=== PATIENT | female | born 1975 | race Caucasian/White ===

== ENCOUNTER 2016-08-21 17:43 | Emergency (ER) | payer BC ==
[~2016-08-21] VITALS: Ht 162.6 cm; Wt 65.8 kg
[~2016-08-21 17:43] MED LIST: /AMIT25TA PO; /AUGM875TA OR; /IPRA3SP; /MOXI40TA PO; ACET65TA OR; BACT800T5 PO; DEPA250T2 PO; FIORICET OR; FIORTAB PO; GABA-282 PO; HYDR-3713 PO; IBUP600T26 PO; IBUP800T OR; KETO10TAB PO; LEVA31IN INH; MAXA5TAB10 PO; MAXALT PO; MEDR4PAK PO; NORT25CA2 OR; NORT25CA2 PO; NYST1000 SS; OMEP20CA3 PO; PRIL20CA9 PO; REGL10TA6 PO; TYLE325T5 PO; TYLETAB14 PO; ZOFR8TAB PO; [UNRECOGNIZED DRUG - OTHER] PO
[2016-08-21] MEDS ORDERED: NORCO, ANEXSIA 5/325MG TABLET (HYDROcodone/ACETAMINOPHEN) PO ONE (18:15)
[2016-08-21] MEDS ORDERED: ADACEL/BOOSTRIX VACCINE (DIPHTH/PERTUSS/ACELL/TETANUS)0.5ML SYR (90715) IM ONE (18:15)
[2016-08-21] MEDS ORDERED: NORCOTAB PO (18:45)
[2016-08-21 18:52] VITALS: BP 146/88
--- NOTE | 2016-08-21 18:53 | REP ---
Clinical: Trauma. Technique: AP, lateral, bilateral oblique and sunrise views right knee . Findings: The osseous structures and joint spaces are intact and normal. There is no evidence for acute fracture or dislocation. No joint effusion is appreciated. Anterior soft tissue swelling noted. No subcutaneous emphysema or radiodense foreign body. Impression: Anterior swelling. No acute fracture or dislocation. Signed by Neto Berg MD 08/21/2016 06:44 P
[2016-08-22] MEDS ORDERED: NAPR500T2 PO (17:25)
== END 2016-08-21 18:58 | disposition home or self-care (01) ==
LOC: M ED 18:38
DX: S50.812A Abrasion of left forearm, initial encounter (principal); S80.01XA Contusion of right knee, initial encounter; W10.1XXA Fall (on)(from) sidewalk curb, initial encounter; Y92.410 Unspecified street and highway as the place of occurrence of the external cause; Y93.01 Activity, walking, marching and hiking; Y99.8 Other external cause status; G43.909 Migraine, unspecified, not intractable, without status migrainosus; Z79.899 Other long term (current) drug therapy; Z88.8 Allergy status to other drugs, medicaments and biological substances; Z88.1 Allergy status to other antibiotic agents

== ENCOUNTER 2016-08-22 16:30 | Emergency (ER) | payer BC ==
[~2016-08-22] VITALS: Ht 162.6 cm; Wt 65.8 kg
[2016-08-22 16:30] VITALS: BP 116/70
[~2016-08-22 16:30] MED LIST changes: +NORCOTAB PO
[2016-08-22] MEDS ORDERED: NAPR500T2 PO (17:25)
== END 2016-08-22 17:35 | disposition home or self-care (01) ==
LOC: M ED 17:10
DX: M23.91 Unspecified internal derangement of right knee (principal); M25.461 Effusion, right knee; W19.XXXA Unspecified fall, initial encounter; Y92.410 Unspecified street and highway as the place of occurrence of the external cause; Y93.89 Activity, other specified; Y99.9 Unspecified external cause status; Z79.899 Other long term (current) drug therapy; Z88.1 Allergy status to other antibiotic agents; Z88.8 Allergy status to other drugs, medicaments and biological substances

== ENCOUNTER → 2016-08-26 | Outpatient (REF) | payer BC ==
[~2016-08-26] MED LIST changes: +NAPR500T2 PO
[2016-08-26 17:54] LABS: SYNOVIAL FLUID COLOR RED (YELLOW)
[2016-08-26 17:55] LABS: CRYSTALS, BODY FLUID NONE SEEN (NONE SEEN)
[2016-08-26 18:05] LABS: RBC ADVIA BF 0.07; RBC CALC. BF 70000 (< 10mm3 cells/uL); WBC ADVIA BF 12.8; WBC CALC. BF 12800 cells/uL (0-20)
[2016-08-26 18:16] LABS: BF DIFF IF INDICATED? YES (NO)
[2016-08-26 18:51] LABS: URIC ACID, BODY FLUID 3.3 MG/DL (NOT ESTABLISHED)
[2016-08-26 20:19] LABS: CC BF DIFF EXAM CYTOCENTRIFUGE
[2016-08-26 20:22] LABS: HCT SOURCE RT KNEE
== END ==
LOC: M LAB REF 16:51
PROVIDERS: ATTEND Orthopaedic Surgery
DX: M71.50 Other bursitis, not elsewhere classified, unspecified site (principal)

== ENCOUNTER → 2016-09-15 | Outpatient (REF) | payer BC | LOC: M LAB REF 08:36 | PROVIDERS: ATTEND Physician Assistant | DX: R10.32 Left lower quadrant pain (principal) ==

== ENCOUNTER 2016-09-24 08:58 | Outpatient (RCR) | payer BC ==
[~2016-09-24 08:58] MED LIST changes: +IBUP-1022 PO; -NAPR500T2 PO; +NAPR500T3 PO
== END 2016-09-25 | disposition home or self-care (01) ==
LOC: M PT 08:58
PROVIDERS: ATTEND Orthopaedic Surgery
DX: Z51.89 Encounter for other specified aftercare (principal); M70.51 Other bursitis of knee, right knee

== ENCOUNTER 2016-09-30 00:17 | Emergency (ER) | payer BC ==
[2016-09-30] MEDS ORDERED: NORCO, ANEXSIA 5/325MG TABLET (HYDROcodone/ACETAMINOPHEN) As Ordered ONE (02:50)
[2016-09-30] MEDS: NORCO, ANEXSIA 5/325MG TABLET (HYDROcodone/ACETAMINOPHEN) PO ONE (02:54)
[2016-09-30] MEDS ORDERED: NORCOTAB PO (03:58)
[2016-09-30] MEDS: MORPHINE 10 MG/ML 1ML VIAL IM ONE (04:05)
[2016-09-30 04:42] VITALS: BP 103/88
--- NOTE | 2016-09-30 07:33 | REP ---
Clinical: Trauma. Technique: AP, lateral, bilateral oblique views of the left ankle. Findings: A spiral nondisplaced closed fracture of the distal fibular metadiaphysis is appreciated with overlying soft tissue swelling. No subcutaneous emphysema or radiodense foreign body. Ankle mortise appears relatively stable. Impression: Spiral closed nondisplaced fracture of the distal fibula with overlying swelling. Signed by Neto Berg MD 09/30/2016 07:24 A
--- NOTE | 2016-09-30 07:36 | REP ---
Clinical: Trauma. Technique: AP, lateral, bilateral oblique views left foot . Findings: The osseous structures and joint spaces are intact and normal. There is no evidence for acute fracture or dislocation. Surrounding soft tissues are unremarkable. No subcutaneous emphysema or radiodense foreign body. Nondisplaced fracture of the distal fibula with swelling noted. Impression: Nondisplaced distal fibular fracture. No acute fracture or dislocation involving the foot. Signed by Neto Berg MD 09/30/2016 07:28 A
[2016-10-01] MEDS ORDERED: PERC5TAB12 PO (00:46)
== END 2016-09-30 04:46 | disposition home or self-care (01) ==
LOC: M ED 01:07
DX: S82.442A Displaced spiral fracture of shaft of left fibula, initial encounter for closed fracture (principal); W19.XXXA Unspecified fall, initial encounter; Y92.019 Unspecified place in single-family (private) house as the place of occurrence of the external cause; Y93.9 Activity, unspecified; Y99.8 Other external cause status

== ENCOUNTER 2016-09-30 21:45 | Emergency (ER) | payer BC ==
[~2016-09-30] VITALS: Ht 162.6 cm; Wt 63.6 kg
[2016-09-30] MEDS ORDERED: HYDROmorphone HCL 1 MG/ML SYRINGE (J1170) IM ONE (23:45)
[2016-10-01] MEDS ORDERED: PERC5TAB12 PO (00:46)
[2016-10-01 00:53] VITALS: BP 117/62
[2016-10-01] MEDS ORDERED: OXYCODONE/APAP 5MG/325MG(BULK FOR ED) 1 TABLET PO ONE (01:00)
== END 2016-10-01 00:59 | disposition home or self-care (01) ==
LOC: M ED 21:45
DX: S82.402D Unspecified fracture of shaft of left fibula, subsequent encounter for closed fracture with routine healing (principal); X58.XXXD Exposure to other specified factors, subsequent encounter; Y92.89 Other specified places as the place of occurrence of the external cause; F17.210 Nicotine dependence, cigarettes, uncomplicated; Z91.81 History of falling; Z79.899 Other long term (current) drug therapy; Z88.8 Allergy status to other drugs, medicaments and biological substances; Z91.018 Allergy to other foods; Z88.1 Allergy status to other antibiotic agents
CPT/HCPCS: 96372; 99282; J1170

== ENCOUNTER 2016-12-10 18:47 | Emergency (ER) | payer BC ==
[~2016-12-10] VITALS: Ht 160 cm; Wt 65.0 kg
[~2016-12-10 18:47] MED LIST changes: +PERC5TAB12 PO
[2016-12-10] MEDS ORDERED: ACET1TAB17 PO (19:06)
[2016-12-10] MEDS ORDERED: diphenhydrAMINE INJ 50MG/ML VIAL (J1200) IV STA (21:22)
[2016-12-10] MEDS ORDERED: NS 1,000 ML IV ONE (21:30)
[2016-12-10] MEDS ORDERED: METOCLOPRAMIDE INJ 10MG/2ML VIAL (J2765) IV ONE (21:30)
[2016-12-10] MEDS ORDERED: KETOROLAC 30 MG/ML VIAL (J1885) IV ONE (21:30)
[2016-12-10 21:50] LABS: BASO % 0.5 % (0.0-1.0); EOS # 0.5 K/mm3 (0.0-0.50); EOS % 6.4 % (0.0-3.0); LARGE UNSTAINED CELL # 0.1 K/mm3 (0.0-0.4); LARGE UNSTAINED CELL % 1.5 % (0.0-4.0); LYMPH # 2.2 K/mm3 (1.5-4.5); LYMPH % 28.5 % (24.0-44.0); MEAN CORPUSCULAR HEMOGLOBIN 29.5 pg (27.0-33.0); MEAN CORPUSCULAR HGB CONC 33.9 g/dl (32.0-36.5); MEAN CORPUSCULAR VOLUME 87.1 fl (80.0-96.0); MONO # 0.4 K/mm3 (0.0-0.8); MONO % 4.6 % (0.0-5.0); NEUTROPHILS # 4.5 K/mm3 (1.8-7.7); NEUTROPHILS % 58.4 % (36.0-66.0); PLATELET COUNT, AUTOMATED 330 k/mm3 (150-450); RED CELL DISTRIBUTION WIDTH 13.6 % (11.5-14.5); WHITE BLOOD COUNT 7.6 K/mm3 (4.0-10.0)
[2016-12-10 22:07] LABS: ERYTHROCYTE SEDIMENTATION RATE 17 mm/hr (0-20)
[2016-12-10 22:12] LABS: ANION GAP 5 MEQ/L (8-16); BLOOD UREA NITROGEN 8 MG/DL (7-18); CALCIUM LEVEL 8.7 MG/DL (8.5-10.1); CARBON DIOXIDE LEVEL 29 MEQ/L (21-32); CHLORIDE LEVEL 107 MEQ/L (98-107); CREATININE FOR GFR 0.63 MG/DL (0.55-1.02); GLOMERULAR FILTRATION RATE > 60.0 (>60); GLUCOSE, FASTING 89 MG/DL (70-105); POTASSIUM SERUM 4.1 MEQ/L (3.5-5.1); SODIUM LEVEL 141 MEQ/L (136-145)
[2016-12-10] MEDS ORDERED: MORPHINE 4 MG/ML 1ML SYRINGE IV ONE (22:30)
[2016-12-10] MEDS ORDERED: methylPREDNISolone INJ 125 MG/2 ML VIAL (J2930) IV ONE (22:30)
[2016-12-10 23:25] VITALS: BP 112/60
== END 2016-12-10 23:26 | disposition home or self-care (01) ==
LOC: M ED 18:47
DX: G43.909 Migraine, unspecified, not intractable, without status migrainosus (principal); Z87.442 Personal history of urinary calculi; Z87.42 Personal history of other diseases of the female genital tract; Z98.890 Other specified postprocedural states; Z79.899 Other long term (current) drug therapy; Z88.8 Allergy status to other drugs, medicaments and biological substances; Z88.1 Allergy status to other antibiotic agents; Z91.048 Other nonmedicinal substance allergy status
CPT/HCPCS: 80048; 85025; 85652; 96374; 96375; 99283; J1200; J1885; J2765; J2930

== ENCOUNTER 2017-01-25 10:00 | Outpatient (RCR) | payer BC ==
[~2017-01-25 10:00] MED LIST changes: +ACET1TAB17 PO
== END 2017-01-26 ==
LOC: M PT 10:00
PROVIDERS: ATTEND Physician Assistant
DX: Z51.89 Encounter for other specified aftercare (principal); M84.472D Pathological fracture, left ankle, subsequent encounter for fracture with routine healing

== ENCOUNTER 2017-02-07 20:37 | Emergency (ER) | payer BC ==
[~2017-02-07] VITALS: Ht 160 cm; Wt 63.6 kg
[2017-02-07] MEDS ORDERED: NORCO, ANEXSIA 5/325MG TABLET (HYDROcodone/ACETAMINOPHEN) PO ONE (21:00)
--- NOTE | 2017-02-07 21:50 | REPUSA ---
Clinical history: Pain. Findings: Real-time transabdominal and transvaginal ultrasound images of the pelvis were obtained. Th e patient is status post hysterectomy. The right ovary measures 2.4 x 1.5 x 2.4 cm. The left ovary me asures 2.2 x 1.7 x 1.6 cm. No adnexal masses are seen. Color Doppler flow is seen within both ovaries . There is no evidence of free fluid. The urinary bladder measures 3.6 x 2.0 x 4.6 cm and is unremark able. Impression: Unremarkable ultrasound examination of the pelvis.
[2017-02-07 22:50] VITALS: BP 171/78
== END 2017-02-07 22:56 | disposition home or self-care (01) ==
LOC: M ED 20:37
DX: N93.9 Abnormal uterine and vaginal bleeding, unspecified (principal); Z87.42 Personal history of other diseases of the female genital tract; Z79.899 Other long term (current) drug therapy; Z88.8 Allergy status to other drugs, medicaments and biological substances; Z88.1 Allergy status to other antibiotic agents

== ENCOUNTER 2017-02-23 12:00 | Outpatient (RCR) | payer BC | END 2017-02-25 | LOC: M PT 12:00 | PROVIDERS: ATTEND Physician Assistant | DX: S82.65XD Nondisplaced fracture of lateral malleolus of left fibula, subsequent encounter for closed fracture with routine healing (principal); X58.XXXD Exposure to other specified factors, subsequent encounter; Y92.9 Unspecified place or not applicable ==

== ENCOUNTER 2017-03-02 11:59 | Outpatient (RCR) | payer BC | END 2017-03-28 | LOC: M PT 11:59 | DX: Z51.89 Encounter for other specified aftercare (principal); S82.56 Nondisplaced fracture of medial malleolus of unspecified tibia ==

== ENCOUNTER 2017-05-05 16:25 | Emergency (ER) | payer BC ==
[2017-05-05 17:01] LABS: KETONE, URINE AUTO RFX NEGATIVE (NEGATIVE); LEUKOCYTE ESTERASE UR AUTO RFX NEGATIVE (NEGATIVE); MUCUS, URINE RFX SMALL (NEGATIVE); NITRITE, URINE AUTO RFX NEGATIVE (NEGATIVE); RBC, URINE AUTO RFX 1 /HPF (0-3); SPECIFIC GRAVITY UR AUTO RFX 1.006 (1.002-1.035); SQUAM EPITHELIAL CELL UR AURFX 0 /HPF (0-6); WBC, URINE AUTO RFX 0 /HPF (0-3)
[2017-05-05] MEDS: NS 1,000 ML IV (18:47)
[2017-05-05] MEDS: MORPHINE 2 MG/ML 1ML SYRINGE (J2270) IV (18:47)
[2017-05-05 18:50] LABS: BASO # 0.1 10^3/uL (0.0-0.2); BASO % 0.7 % (0.0-1.0); EOS # 0.6 10^3/uL (0.0-0.50); HEMATOCRIT 38.2 % (36.0-47.0); HEMOGLOBIN 12.3 g/dl (12.0-16.0); IMMATURE GRANULOCYTE % 0.4 % (0-3.0); LYMPH # 2.8 10^3/uL (1.5-4.5); LYMPH % 26.2 % (24.0-44.0); MEAN CORPUSCULAR HEMOGLOBIN 27.8 pg (27.0-33.0); MEAN CORPUSCULAR HGB CONC 32.2 g/dl (32.0-36.5); MEAN CORPUSCULAR VOLUME 86.2 fl (80.0-96.0); MONO # 0.7 10^3/uL (0.0-0.8); MONO % 6.3 % (0.0-5.0); NEUTROPHILS # 6.5 10^3/uL (1.8-7.7); NEUTROPHILS % 60.4 % (36.0-66.0); PLATELET COUNT, AUTOMATED 338 10^3/uL (150-450); RED BLOOD COUNT 4.43 10^6/uL (4.00-5.40); RED CELL DISTRIBUTION WIDTH 13.3 % (11.5-14.5); WHITE BLOOD COUNT 10.8 10^3/uL (4.0-10.0)
[2017-05-05 19:15] LABS: ALBUMIN 3.6 GM/DL (3.2-5.2); ALBUMIN/GLOBULIN RATIO 1.13 (1.00-1.93); ALKALINE PHOSPHATASE 87 U/L (45-117); ALT/SGPT 26 U/L (12-78); ANION GAP 7 MEQ/L (8-16); AST/SGOT 14 U/L (7-37); BILIRUBIN,DIRECT < 0.1 MG/DL (0.0-0.2); BILIRUBIN,TOTAL 0.2 MG/DL (0.2-1.0); BLOOD UREA NITROGEN 8 MG/DL (7-18); CALCIUM LEVEL 8.7 MG/DL (8.5-10.1); CARBON DIOXIDE LEVEL 27 MEQ/L (21-32); CHLORIDE LEVEL 109 MEQ/L (98-107); CREATININE FOR GFR 0.55 MG/DL (0.55-1.30); GLOMERULAR FILTRATION RATE > 60.0 (>58); GLUCOSE, FASTING 97 MG/DL (70-100); INFLUENZA A AMPLIFICATION NEGATIVE (NEGATIVE); INFLUENZA B AMPLIFICATION NEGATIVE (NEGATIVE); LIPASE 151 U/L (73-393); POTASSIUM SERUM 4.6 MEQ/L (3.5-5.1); SODIUM LEVEL 143 MEQ/L (136-145); TOTAL PROTEIN 6.8 GM/DL (6.4-8.2)
== END 2017-05-05 20:26 | disposition home or self-care (01) ==
LOC: M ED 16:25
DX: N83.201 Unspecified ovarian cyst, right side (principal); K44.9 Diaphragmatic hernia without obstruction or gangrene; K21.9 Gastro-esophageal reflux disease without esophagitis; Z79.899 Other long term (current) drug therapy; Z88.8 Allergy status to other drugs, medicaments and biological substances; Z91.048 Other nonmedicinal substance allergy status; Z88.1 Allergy status to other antibiotic agents; Z87.442 Personal history of urinary calculi; Z87.448 Personal history of other diseases of urinary system; Z86.69 Personal history of other diseases of the nervous system and sense organs; Z87.42 Personal history of other diseases of the female genital tract; Z98.890 Other specified postprocedural states
CPT/HCPCS: J2770

== ENCOUNTER → 2017-06-03 | Outpatient (REF) | payer BC | LOC: M LAB REF 15:43 | DX: N39.0 Urinary tract infection, site not specified (principal) | CPT/HCPCS: 87086 ==

== ENCOUNTER 2017-09-21 22:21 | Inpatient (IN) | payer BC ==
[2017-09-21] MEDS: NS 1,000 ML IV (23:00)
[2017-09-21] MEDS: METOCLOPRAMIDE INJ 10MG/2ML VIAL (J2765) IV (23:00)
[2017-09-21 23:22] LABS: BASO # 0.1 10^3/uL (0.0-0.2); BASO % 0.4 % (0.0-1.0); EOS # 0.3 10^3/uL (0.0-0.50); EOS % 2.5 % (0.0-3.0); HEMATOCRIT 36.5 % (36.0-47.0); IMMATURE GRANULOCYTE % 0.3 % (0-3.0); LYMPH # 2.1 10^3/uL (1.5-4.5); LYMPH % 17.6 % (24.0-44.0); MEAN CORPUSCULAR HEMOGLOBIN 27.9 pg (27.0-33.0); MEAN CORPUSCULAR HGB CONC 32.9 g/dl (32.0-36.5); MEAN CORPUSCULAR VOLUME 84.9 fl (80.0-96.0); MONO # 0.9 10^3/uL (0.0-0.8); MONO % 7.2 % (0.0-5.0); NEUTROPHILS # 8.7 10^3/uL (1.8-7.7); PLATELET COUNT, AUTOMATED 315 10^3/uL (150-450); RED CELL DISTRIBUTION WIDTH 13.5 % (11.5-14.5); WHITE BLOOD COUNT 12.1 10^3/uL (4.0-10.0)
[2017-09-21 23:46] LABS: CONTROL LINE HCG INT CTR LINE PRESENT; HCG, SERUM QUALITATIVE NEGATIVE (NEGATIVE)
[2017-09-21 23:49] LABS: ALBUMIN 3.3 GM/DL (3.2-5.2); ALBUMIN/GLOBULIN RATIO 1.06 (1.00-1.93); ALKALINE PHOSPHATASE 63 U/L (45-117); ALT/SGPT 17 U/L (12-78); ANION GAP 5 MEQ/L (8-16); AST/SGOT 10 U/L (7-37); BILIRUBIN,DIRECT < 0.1 MG/DL (0.0-0.2); BILIRUBIN,TOTAL 0.2 MG/DL (0.2-1.0); BLOOD UREA NITROGEN 13 MG/DL (7-18); CALCIUM LEVEL 8.2 MG/DL (8.5-10.1); CARBON DIOXIDE LEVEL 27 MEQ/L (21-32); CHLORIDE LEVEL 112 MEQ/L (98-107); CREATININE FOR GFR 0.69 MG/DL (0.55-1.30); GLOMERULAR FILTRATION RATE > 60.0 (>58); GLUCOSE, FASTING 100 MG/DL (70-100); MAGNESIUM LEVEL 1.9 MG/DL (1.8-2.4); PHOSPHORUS LEVEL 2.7 MG/DL (2.5-4.9); POTASSIUM SERUM 4.1 MEQ/L (3.5-5.1); SODIUM LEVEL 144 MEQ/L (136-145); TOTAL PROTEIN 6.4 GM/DL (6.4-8.2)
[2017-09-21 23:50] LABS: KETONE, URINE AUTO RFX NEGATIVE (NEGATIVE); LEUKOCYTE ESTERASE UR AUTO RFX NEGATIVE (NEGATIVE); MUCUS, URINE RFX SMALL (NEGATIVE); NITRITE, URINE AUTO RFX NEGATIVE (NEGATIVE); RBC, URINE AUTO RFX 1 /HPF (0-3); SPECIFIC GRAVITY UR AUTO RFX 1.025 (1.002-1.035); SQUAM EPITHELIAL CELL UR AURFX 1 /HPF (0-6); WBC, URINE AUTO RFX 0 /HPF (0-3)
[2017-09-22] MEDS: KETOROLAC 30 MG/ML VIAL (J1885) IV ×4 (00:18→22:08)
[2017-09-22 01:01] LABS: AMPHETAMINES LEVEL URINE NEGATIVE (NEGATIVE); BARBITURATES URINE NEGATIVE (NEGATIVE); BENZODIAZEPINES URINE NEGATIVE (NEGATIVE); CANNABINOIDS URINE NEGATIVE (NEGATIVE); COCAINE METABOLITE URINE NEGATIVE (NEGATIVE); METHADONE URINE NEGATIVE (NEGATIVE); OPIATES URINE NEGATIVE (NEGATIVE); PHENCYCLIDINE URINE NEGATIVE (NEGATIVE)
[2017-09-22] MEDS: NS 1,000 ML IV ×3 (02:52→22:11)
[2017-09-22] MEDS ORDERED: PERCOCET 5MG/325MG TAB PO (03:00)
[2017-09-22] MEDS ORDERED: ACETAMINOPHEN TAB 650MG DOSE (2X325MG) PO (03:00)
[2017-09-22] MEDS: SUMAtriptan SUCCINATE 6 MG/0.5 ML VIAL SC (03:54)
[2017-09-22] MEDS: ACETAMINOPHEN TAB 650MG DOSE (2X325MG) PO (03:55)
[2017-09-22] MEDS: MORPHINE 4 MG/ML 1ML VIAL/SYRINGE (J2270) IV (04:15)
[2017-09-22] MEDS: DIVALPROEX 250 MG TAB PO ×3 (04:59→22:07)
[2017-09-22] MEDS: ENOXAPARIN 40 MG/0.4 ML SYRINGE (J1650) SC (08:06)
[2017-09-22] MEDS ORDERED: FIORICET TAB PO (09:00)
[2017-09-22 09:26] LABS: BASO % 0.4 % (0.0-1.0); EOS # 0.2 10^3/uL (0.0-0.50); EOS % 1.5 % (0.0-3.0); HEMATOCRIT 34.6 % (36.0-47.0); HEMOGLOBIN 11.6 g/dl (12.0-15.5); IMMATURE GRANULOCYTE % 0.3 % (0-3.0); LYMPH % 9.7 % (24.0-44.0); MEAN CORPUSCULAR HGB CONC 33.5 g/dl (32.0-36.5); MEAN CORPUSCULAR VOLUME 83.4 fl (80.0-96.0); MONO # 0.8 10^3/uL (0.0-0.8); MONO % 7.7 % (0.0-5.0); NEUTROPHILS # 8.5 10^3/uL (1.8-7.7); NEUTROPHILS % 80.4 % (36.0-66.0); PLATELET COUNT, AUTOMATED 254 10^3/uL (150-450); RED BLOOD COUNT 4.15 10^6/uL (4.00-5.40); RED CELL DISTRIBUTION WIDTH 13.3 % (11.5-14.5); WHITE BLOOD COUNT 10.6 10^3/uL (4.0-10.0)
[2017-09-22 09:46] LABS: ANION GAP 8 MEQ/L (8-16); BLOOD UREA NITROGEN 9 MG/DL (7-18); C REACTIVE PROTEIN QUANTITATIV 0.73 MG/DL (0.00-0.30); CALCIUM LEVEL 7.6 MG/DL (8.5-10.1); CARBON DIOXIDE LEVEL 22 MEQ/L (21-32); CHLORIDE LEVEL 113 MEQ/L (98-107); CREATININE FOR GFR 0.45 MG/DL (0.55-1.30); GLOMERULAR FILTRATION RATE > 60.0 (>58); GLUCOSE, FASTING 93 MG/DL (70-100); POTASSIUM SERUM 4.1 MEQ/L (3.5-5.1); SODIUM LEVEL 143 MEQ/L (136-145)
[2017-09-22 09:50] LABS: ERYTHROCYTE SEDIMENTATION RATE 12 mm/hr (0-20)
[2017-09-22] MEDS: methylPREDNISolone INJ 125 MG/2 ML VIAL (J2930) IV (10:18)
[2017-09-22] MEDS: METOCLOPRAMIDE INJ 10MG/2ML VIAL (J2765) IV ×3 (10:19→22:07)
[2017-09-23] MEDS: METOCLOPRAMIDE INJ 10MG/2ML VIAL (J2765) IV ×2 (02:54→08:58)
[2017-09-23] MEDS: KETOROLAC 30 MG/ML VIAL (J1885) IV ×2 (02:54→08:58)
[2017-09-23] MEDS: ENOXAPARIN 40 MG/0.4 ML SYRINGE (J1650) SC (08:58)
[2017-09-23] MEDS: DIVALPROEX 250 MG TAB PO (08:58)
== END 2017-09-23 12:11 | disposition home or self-care (01) | DRG 54 ==
LOC: M ED INP 09-22 02:52 → M ED 22:21 → M PCU 09-22 04:00 → M MSPAV 09-22 17:03
DX: G43.901 Migraine, unspecified, not intractable, with status migrainosus (principal); R55 Syncope and collapse; G44.209 Tension-type headache, unspecified, not intractable; M54.81 Occipital neuralgia; Z90.710 Acquired absence of both cervix and uterus; Z88.1 Allergy status to other antibiotic agents; Z88.8 Allergy status to other drugs, medicaments and biological substances; Z79.899 Other long term (current) drug therapy

== ENCOUNTER 2017-11-14 21:23 | Day surgery (SDC) | payer BC ==
[2017-11-14] MEDS: ONDANSETRON 4MG/2ML VIAL (J2405) IV ×2 (23:16)
[2017-11-14] MEDS: NS 1,000 ML IV ×2 (23:16)
[2017-11-14] MEDS: MORPHINE 4 MG/ML 1ML VIAL/SYRINGE (J2270) IV ×2 (23:16)
[2017-11-14 23:29] LABS: BASO # 0.1 10^3/uL (0.0-0.2); BASO % 0.6 % (0.0-1.0); EOS # 0.1 10^3/uL (0.0-0.50); EOS % 0.6 % (0.0-3.0); HEMATOCRIT 35.4 % (36.0-47.0); HEMOGLOBIN 11.7 g/dl (12.0-15.5); IMMATURE GRANULOCYTE % 0.3 % (0-3.0); LYMPH # 1.2 10^3/uL (1.5-4.5); LYMPH % 9.8 % (24.0-44.0); MEAN CORPUSCULAR HEMOGLOBIN 28.1 pg (27.0-33.0); MEAN CORPUSCULAR HGB CONC 33.1 g/dl (32.0-36.5); MEAN CORPUSCULAR VOLUME 85.1 fl (80.0-96.0); MONO # 0.6 10^3/uL (0.0-0.8); NEUTROPHILS # 10.6 10^3/uL (1.8-7.7); NEUTROPHILS % 83.7 % (36.0-66.0); PLATELET COUNT, AUTOMATED 302 10^3/uL (150-450); RED BLOOD COUNT 4.16 10^6/uL (4.00-5.40); RED CELL DISTRIBUTION WIDTH 14.5 % (11.5-14.5); WHITE BLOOD COUNT 12.7 10^3/uL (4.0-10.0)
[2017-11-14 23:44] LABS: CONTROL LINE HCG INT CTR LINE PRESENT; HCG, SERUM QUALITATIVE NEGATIVE (NEGATIVE)
[2017-11-14 23:52] LABS: ALBUMIN 3.1 GM/DL (3.2-5.2); ALBUMIN/GLOBULIN RATIO 0.86 (1.00-1.93); ALKALINE PHOSPHATASE 71 U/L (45-117); ALT/SGPT 30 U/L (12-78); ANION GAP 7 MEQ/L (8-16); AST/SGOT 24 U/L (7-37); BILIRUBIN,DIRECT < 0.1 MG/DL (0.0-0.2); BILIRUBIN,TOTAL 0.3 MG/DL (0.2-1.0); BLOOD UREA NITROGEN 9 MG/DL (7-18); CARBON DIOXIDE LEVEL 25 MEQ/L (21-32); CHLORIDE LEVEL 111 MEQ/L (98-107); CREATININE FOR GFR 0.61 MG/DL (0.55-1.30); GLOMERULAR FILTRATION RATE > 60.0 (>58); GLUCOSE, FASTING 120 MG/DL (70-100); LIPASE 99 U/L (73-393); POTASSIUM SERUM 3.8 MEQ/L (3.5-5.1); SODIUM LEVEL 143 MEQ/L (136-145); TOTAL PROTEIN 6.7 GM/DL (6.4-8.2)
[2017-11-14 23:58] LABS: LACTIC ACID SEPSIS PROTOCOL 1.3 MMOL/L (0.4-2.0)
[2017-11-15] MEDS: GASTROGRAFIN SOLUTION 30ML PO ×4 (01:04→01:40)
[2017-11-15] MEDS: GI COCKTAIL 50ML BTL(HYOSCYAMINE/MAALOX/LIDOCAINE VISCOUS)(1:3:1) PO ×2 (01:04)
[2017-11-15] MEDS: MORPHINE 4 MG/ML 1ML VIAL/SYRINGE (J2270) IV ×6 (01:06→20:12)
[2017-11-15] MEDS ORDERED: ISOVUE-370 76% 100ML VIAL (Q9967) As Ordered ×2 (02:05)
[2017-11-15] MEDS: HYDROMORPHONE HCL 0.5 MG/ 0.5 ML SYRINGE (J1170 PER 1) IV ×4 (03:56→07:40)
[2017-11-15] MEDS: PIPERACILLIN/TAZOBACTAM SOD 3.375 GM in D5W MINI-BAG PLUS 50 ML IV ×4 (03:57→21:17)
[2017-11-15] MEDS: NS IV (06:30)
[2017-11-15] MEDS: DILUENT IV (06:30)
[2017-11-15] MEDS ORDERED: BUPIVACAINE/EPIN 0.25% 30 ML VIAL As Ordered ×2 (08:08)
[2017-11-15] MEDS ORDERED: dexameTHASONE 4 MG/ML 1ML VIAL (J1100) As Ordered ×2 (08:19)
[2017-11-15] MEDS ORDERED: LIDOCAINE 2% INJ 100 MG/5 ML SDV (FOR ANES.) As Ordered ×2 (08:19)
[2017-11-15] MEDS ORDERED: PROPOFOL 200 MG/20 ML VIAL As Ordered ×2 (08:19)
[2017-11-15] MEDS ORDERED: fentaNYL 100 MCG/2 ML INJECTION (J3010) As Ordered ×2 (08:19)
[2017-11-15] MEDS ORDERED: MIDAZOLAM INJ 2 MG/2 ML VIAL (J2250) As Ordered ×2 (08:19)
[2017-11-15] MEDS ORDERED: ONDANSETRON 4MG/2ML VIAL (J2405) As Ordered ×2 (08:19)
[2017-11-15] MEDS ORDERED: ROCURONIUM BROMIDE 50 MG/5 ML VIAL As Ordered ×2 (08:19)
[2017-11-15] MEDS ORDERED: SUGAMMADEX SODIUM 500 MG/5 ML VIAL (BRIDION) As Ordered ×2 (08:19)
[2017-11-15] MEDS ORDERED: ONDANSETRON 4MG/2ML VIAL (J2405) IV ×4 (08:30→10:15)
[2017-11-15] MEDS ORDERED: ACETAMINOPHEN TAB 650MG DOSE (2X325MG) PO ×2 (08:30)
[2017-11-15] MEDS ORDERED: KETOROLAC 30 MG/ML VIAL (J1885) IV ×2 (08:30)
[2017-11-15] MEDS ORDERED: SUCCINYLCHOLINE 100 MG/5 ML SYRINGE (J0330) As Ordered ×2 (09:22)
[2017-11-15] MEDS: fentaNYL 100 MCG/2 ML INJECTION (J3010) IV ×8 (10:25→10:40)
[2017-11-15] MEDS ORDERED: PERCOCET 5MG/325MG TAB As Ordered ×2 (10:30)
[2017-11-15] MEDS: PERCOCET 5MG/325MG TAB PO ×4 (10:30→11:00)
[2017-11-15] MEDS ORDERED: KETOROLAC 30 MG/ML VIAL (J1885) As Ordered ×2 (11:12)
[2017-11-15] MEDS: KETOROLAC 30 MG/ML VIAL (J1885) IV ×2 (11:15)
[2017-11-15] MEDS: KCL 20MEQ IN D5/0.45NS 1000ML 1,000 ML IV ×2 (11:46→21:18)
[2017-11-15] MEDS: SENOKOT S TAB PO ×4 (11:46→20:10)
[2017-11-15] MEDS: LR 1,000 ML IV ×2 (12:17)
[2017-11-15] MEDS: HEPARIN SOD (PORCINE) 5000 UNITS/ML VIAL SC ×4 (13:40→20:10)
[2017-11-15] MEDS: NORCO, ANEXSIA 5/325MG TABLET (HYDROcodone/ACETAMINOPHEN) PO ×2 (16:52)
[2017-11-15] MEDS: PANTOPRAZOLE 40MG TAB (PROTONIX) PO ×2 (16:54)
[2017-11-15] MEDS: IBUPROFEN 800 MG TAB PO ×2 (17:56)
[2017-11-15] MEDS: NORTRIPTYLINE 25 MG CAP PO ×2 (20:09)
[2017-11-15] MEDS: ESTRADIOL 1 MG TAB PO ×2 (20:09)
[2017-11-15] MEDS: DIVALPROEX 250MG *ER* TAB PO ×2 (20:09)
[2017-11-15] MEDS: GABAPENTIN 400 MG CAP PO ×2 (20:10)
[2017-11-16] MEDS: KCL 20MEQ IN D5/0.45NS 1000ML 1,000 ML IV (00:18)
[2017-11-16] MEDS: NORCO, ANEXSIA 5/325MG TABLET (HYDROcodone/ACETAMINOPHEN) PO ×6 (00:32→18:18)
[2017-11-16] MEDS: PIPERACILLIN/TAZOBACTAM SOD 3.375 GM in D5W MINI-BAG PLUS 50 ML IV (04:21)
[2017-11-16] MEDS: HEPARIN SOD (PORCINE) 5000 UNITS/ML VIAL SC ×6 (06:00→20:45)
[2017-11-16 07:06] LABS: HEMATOCRIT 30.8 % (36.0-47.0); HEMOGLOBIN 9.9 g/dl (12.0-15.5); MEAN CORPUSCULAR HEMOGLOBIN 28.4 pg (27.0-33.0); MEAN CORPUSCULAR HGB CONC 32.1 g/dl (32.0-36.5); MEAN CORPUSCULAR VOLUME 88.5 fl (80.0-96.0); PLATELET COUNT, AUTOMATED 267 10^3/uL (150-450); RED BLOOD COUNT 3.48 10^6/uL (4.00-5.40); WHITE BLOOD COUNT 11.9 10^3/uL (4.0-10.0)
[2017-11-16 07:14] LABS: ALBUMIN 2.3 GM/DL (3.2-5.2); ALBUMIN/GLOBULIN RATIO 0.74 (1.00-1.93); ALKALINE PHOSPHATASE 59 U/L (45-117); ALT/SGPT 71 U/L (12-78); ANION GAP 7 MEQ/L (8-16); AST/SGOT 59 U/L (7-37); BILIRUBIN,TOTAL 0.3 MG/DL (0.2-1.0); BLOOD UREA NITROGEN 5 MG/DL (7-18); CALCIUM LEVEL 7.4 MG/DL (8.5-10.1); CARBON DIOXIDE LEVEL 26 MEQ/L (21-32); CHLORIDE LEVEL 111 MEQ/L (98-107); CREATININE FOR GFR 0.67 MG/DL (0.55-1.30); GLOMERULAR FILTRATION RATE > 60.0 (>58); GLUCOSE, FASTING 117 MG/DL (70-100); POTASSIUM SERUM 3.8 MEQ/L (3.5-5.1); SODIUM LEVEL 144 MEQ/L (136-145); TOTAL PROTEIN 5.4 GM/DL (6.4-8.2)
[2017-11-16] MEDS: PANTOPRAZOLE 40MG TAB (PROTONIX) PO ×2 (07:55)
[2017-11-16] MEDS: SENOKOT S TAB PO ×4 (07:55→20:46)
[2017-11-16] MEDS: ESTRADIOL 1 MG TAB PO ×2 (20:46)
[2017-11-16] MEDS: NORTRIPTYLINE 25 MG CAP PO ×2 (20:46)
[2017-11-16] MEDS: GABAPENTIN 400 MG CAP PO ×2 (20:46)
[2017-11-16] MEDS: DIVALPROEX 250MG *ER* TAB PO ×2 (20:47)
[2017-11-16] MEDS: IBUPROFEN 800 MG TAB PO ×2 (23:08)
[2017-11-17] MEDS: HEPARIN SOD (PORCINE) 5000 UNITS/ML VIAL SC ×2 (07:47)
[2017-11-17] MEDS: PANTOPRAZOLE 40MG TAB (PROTONIX) PO ×2 (08:35)
[2017-11-17] MEDS: SENOKOT S TAB PO ×2 (08:35)
== END 2017-11-17 09:45 | disposition home or self-care (01) ==
LOC: M PED 11-17 09:45 → M SDC 11-15 08:12 → M ED 21:23 → M SDC 21:45 → M PED 11-15 11:30 → M SDC 11-17 09:45 → M PED 11-15 11:30 → M SDC 11-17 09:45
DX: K80.18 Calculus of gallbladder with other cholecystitis without obstruction (principal); Z88.1 Allergy status to other antibiotic agents; Z88.8 Allergy status to other drugs, medicaments and biological substances
CPT/HCPCS: 47562

== ENCOUNTER → 2017-12-10 | Outpatient (REF) | payer BC | LOC: M LAB REF 16:27 | DX: J02.9 Acute pharyngitis, unspecified (principal) | CPT/HCPCS: 87081 ==

== ENCOUNTER → 2017-12-16 | Outpatient (CLI) | payer BC | LOC: M WUC 14:32 | DX: R09.89 Other specified symptoms and signs involving the circulatory and respiratory systems (principal) | CPT/HCPCS: 71046 ==

== ENCOUNTER 2018-02-13 18:53 | Emergency (ER) | payer BC ==
[2018-02-13] MEDS: NS 1,000 ML IV (19:45)
[2018-02-13] MEDS: KETOROLAC 30 MG/ML VIAL (J1885) IV (19:45)
[2018-02-13 19:58] LABS: BASO # 0.1 10^3/uL (0.0-0.2); BASO % 1.1 % (0.0-1.0); EOS # 0.3 10^3/uL (0.0-0.50); EOS % 3.8 % (0.0-3.0); HEMATOCRIT 35.5 % (36.0-47.0); HEMOGLOBIN 11.6 g/dl (12.0-15.5); IMMATURE GRANULOCYTE % 0.2 % (0-3.0); LYMPH # 2.7 10^3/uL (1.5-4.5); LYMPH % 32.3 % (24.0-44.0); MEAN CORPUSCULAR HEMOGLOBIN 28.6 pg (27.0-33.0); MEAN CORPUSCULAR HGB CONC 32.7 g/dl (32.0-36.5); MEAN CORPUSCULAR VOLUME 87.7 fl (80.0-96.0); MONO # 0.6 10^3/uL (0.0-0.8); MONO % 7.2 % (0.0-5.0); NEUTROPHILS # 4.6 10^3/uL (1.8-7.7); NEUTROPHILS % 55.4 % (36.0-66.0); PLATELET COUNT, AUTOMATED 351 10^3/uL (150-450); RED BLOOD COUNT 4.05 10^6/uL (4.00-5.40); RED CELL DISTRIBUTION WIDTH 13.5 % (11.5-14.5); WHITE BLOOD COUNT 8.4 10^3/uL (4.0-10.0)
[2018-02-13 20:01] LABS: INR 0.91; PROTHROMBIN TIME 12.3 SECONDS (12.1-14.4)
[2018-02-13 20:02] LABS: PARTIAL THROMBOPLASTIN TIME 28.2 SECONDS (25.4-37.6)
[2018-02-13 20:15] LABS: ANION GAP 7 MEQ/L (8-16); BLOOD UREA NITROGEN 10 MG/DL (7-18); CALCIUM LEVEL 8.3 MG/DL (8.5-10.1); CARBON DIOXIDE LEVEL 27 MEQ/L (21-32); CHLORIDE LEVEL 107 MEQ/L (98-107); CK-MB VALUE MASS < 1.0 NG/ML (<3.6); CPK CREATINE PHOSPHOKINASE 68 U/L (26-192); CREATININE FOR GFR 0.74 MG/DL (0.55-1.30); GLOMERULAR FILTRATION RATE > 60.0 (>58); GLUCOSE, FASTING 97 MG/DL (70-100); MB/CK RELATIVE INDEX 1.47 (< OR =4); POTASSIUM SERUM 4.3 MEQ/L (3.5-5.1); SODIUM LEVEL 141 MEQ/L (136-145); TROPONIN I < 0.02 NG/ML (< 0.10)
[2018-02-13] MEDS ORDERED: ISOVUE-370 76% 100ML VIAL (Q9967) As Ordered (20:23)
== END 2018-02-13 22:05 | disposition home or self-care (01) ==
LOC: M ED 18:53
DX: R07.1 Chest pain on breathing (principal); G43.909 Migraine, unspecified, not intractable, without status migrainosus; Z79.899 Other long term (current) drug therapy; Z88.1 Allergy status to other antibiotic agents; Z88.8 Allergy status to other drugs, medicaments and biological substances; Z91.048 Other nonmedicinal substance allergy status
CPT/HCPCS: Q9967

== ENCOUNTER 2018-04-20 15:34 | Emergency (ER) | payer BC ==
[~2018-04-20] VITALS: Ht 160 cm; Wt 53.6 kg
[~2018-04-20 15:34] MED LIST changes: -ACET1TAB17 PO; +ACET1TAB55 PO; +DEPA250T32 PO; +ESTR1TAB PO; +FROV2.5T6 PO; -GABA-282 PO; +GABA-843 PO; +GABA-845 PO; +IBUP-1114 PO; +IBUP80TA PO; +NAPR-885 PO; -NAPR500T3 PO; +OMEP40CA2 PO; +OXYC1TAB23 PO; +PERCOCET PO
--- NOTE | 2018-04-20 16:36 | REP ---
CT Head without contrast HISTORY: Injury COMPARISON: 09/22/2017 There is no intraparenchymal hemorrhage, acute infarct, mass or midline shift. The ventricular system is normal in appearance. There is no extra cerebral collection. There is no fracture. The visualized sinuses are clear. IMPRESSION: There is no intracranial lesion. Electronically Signed by Félix Guzman MD 04/20/2018 04:28 P
[2018-04-20] MEDS ORDERED: ONDA4TAB6 PO (17:20)
[2018-04-20] MEDS ORDERED: IBUP-1022 PO (17:22)
[2018-04-20 17:36] VITALS: BP 126/73
== END 2018-04-20 17:38 | disposition home or self-care (01) ==
LOC: M ED 15:34
DX: S06.0X9A Concussion with loss of consciousness of unspecified duration, initial encounter (principal); W22.8XXA Striking against or struck by other objects, initial encounter; Y92.009 Unspecified place in unspecified non-institutional (private) residence as the place of occurrence of the external cause

== ENCOUNTER → 2018-10-21 | Outpatient (REF) | payer BC ==
[~2018-10-21] MED LIST changes: -/AMIT25TA PO; -/IPRA3SP; -/MOXI40TA PO; +AMIT1TAB11 PO; +ATRO1SOL13; +AVEL1TAB2 PO; +HYDR-3715 PO; +LEVA0.3131 INH; -LEVA31IN INH; -NORCOTAB PO; +ONDA-227 PO; +ONDA4TAB6 PO; -ZOFR8TAB PO
[2018-10-25 00:06] LABS: EBV VIRAL CAPSID AG IgM <36.0 U/mL (0.0-35.9)
== END ==
LOC: M LAB REF 16:50
PROVIDERS: ATTEND Nurse Practitioner Family
DX: R53.83 Other fatigue (principal)

== ENCOUNTER → 2018-10-24 | Outpatient (CLI) | payer BC ==
[~2018-10-24] MED LIST changes: +GASTROGRAFIN SOLUTION 30ML (Q9963) As Ordered ONE; +ISOVUE-370 76% 100ML VIAL (Q9967) As Ordered ONE
--- NOTE | 2018-10-24 16:44 | REP ---
Clinical: Acute left lower quadrant pain. Technique: Axial contrast enhanced images from the lung bases to the pubic symphysis using oral (per protocol) and 100 ml Isovue 370 intravenous contrast material with precontrast images of the abdomen as well as coronal and sagittal re-formations. Comparison: 11/15/2017. Findings: Liver, spleen, pancreas, left adrenal gland and bilateral kidneys appear normal. Calcifications involving the right adrenal gland suggest prior infection/insult. The patient is known to be status post cholecystectomy. The enteric system is without obstruction or acute inflammatory process. Findings suggest prior appendectomy with normal cecum and terminal ileum noted in the right lower quadrant. Pelvis demonstrates normal bladder and evidence for prior partial hysterectomy. No ascites. No free air. No adenopathy. Abdominal aorta without aneurysm or dissection. Musculoskeletal structures are intact. Impression: 1. No acute abdominopelvic pathology appreciated. 2. Evidence of prior cholecystectomy, hysterectomy, and appendectomy. 3. No ascites, focal inflammatory stranding, or adenopathy. Electronically Signed by Neto Berg MD 10/24/2018 04:35 P
== END ==
LOC: M RAD 14:10
PROVIDERS: ATTEND Nurse Practitioner Family
DX: R10.32 Left lower quadrant pain (principal)

== ENCOUNTER → 2018-12-01 | Outpatient (REF) | payer BC ==
[~2018-12-01] MED LIST changes: +BENZ-18; +BUPR300T92 PO; -GASTROGRAFIN SOLUTION 30ML (Q9963) As Ordered ONE; -ISOVUE-370 76% 100ML VIAL (Q9967) As Ordered ONE; +KEFL500C17 PO; -OMEP40CA2 PO; +OMEP40CA97 PO
== END ==
LOC: M LAB REF 13:26
PROVIDERS: ATTEND Nurse Practitioner Family
DX: R53.83 Other fatigue (principal)

== ENCOUNTER 2018-12-11 18:12 | Emergency (ER) | payer BC ==
[~2018-12-11] VITALS: Ht 160 cm; Wt 60.8 kg
[~2018-12-11 18:12] MED LIST changes: -BENZ-18; -BUPR300T92 PO; -KEFL500C17 PO; +OMEP40CA2 PO; -OMEP40CA97 PO
[2018-12-11] MEDS ORDERED: BENZ-18 (18:23)
[2018-12-11] MEDS ORDERED: BUPR300T34 PO (18:23)
[2018-12-11] MEDS ORDERED: ONDANSETRON 4MG/2ML VIAL (J2405) IV ONE (19:00)
[2018-12-11] MEDS ORDERED: NS 1,000 ML IV ONE (19:00)
[2018-12-11] MEDS ORDERED: KETOROLAC 30 MG/ML VIAL (J1885) IV ONE (19:00)
[2018-12-11 19:23] LABS: BASO # 0.1 10^3/uL (0.0-0.2); BASO % 0.9 % (0.0-1.0); EOS # 0.4 10^3/uL (0.0-0.5); EOS % 3.9 % (0.0-3.0); HEMATOCRIT 38.2 % (36.0-47.0); HEMOGLOBIN 12.6 g/dl (12.0-15.5); LYMPH # 2.6 10^3/uL (1.5-5.0); LYMPH % 26.4 % (24.0-44.0); MEAN CORPUSCULAR HEMOGLOBIN 29.2 pg (27.0-33.0); MEAN CORPUSCULAR VOLUME 88.6 fl (80.0-96.0); MONO # 0.9 10^3/uL (0.0-0.8); NEUTROPHILS # 5.8 10^3/uL (1.5-8.5); NEUTROPHILS % 59.1 % (36.0-66.0); PLATELET COUNT, AUTOMATED 333 10^3/uL (150-450); RED BLOOD COUNT 4.31 10^6/uL (4.00-5.40); WHITE BLOOD COUNT 9.8 10^3/uL (4.0-10.0)
[2018-12-11 19:41] LABS: ERYTHROCYTE SEDIMENTATION RATE 5 mm/hr (0-20)
[2018-12-11 19:44] LABS: ALT/SGPT 37 U/L (12-78); BILIRUBIN,DIRECT < 0.1 MG/DL (0.0-0.2); BILIRUBIN,TOTAL 0.2 MG/DL (0.2-1.0); BLOOD UREA NITROGEN 14 MG/DL (7-18); C REACTIVE PROTEIN QUANTITATIV < 0.30 MG/DL (0.00-0.30); CALCIUM LEVEL 8.5 MG/DL (8.5-10.1); CARBON DIOXIDE LEVEL 31 MEQ/L (21-32); CHLORIDE LEVEL 108 MEQ/L (98-107); CREATININE FOR GFR 0.65 MG/DL (0.55-1.30); GLOMERULAR FILTRATION RATE > 60.0 (>58); GLUCOSE, FASTING 87 MG/DL (70-100); LIPASE 226 U/L (73-393); POTASSIUM SERUM 3.9 MEQ/L (3.5-5.1); SODIUM LEVEL 143 MEQ/L (136-145); TOTAL PROTEIN 5.9 GM/DL (6.4-8.2)
[2018-12-11] MEDS ORDERED: ISOVUE-370 76% 100ML VIAL (Q9967) As Ordered ONE (19:55)
--- NOTE | 2018-12-11 21:13 | REPVR ---
EXAM: CT Abdomen and Pelvis With Contrast EXAM DATE/TIME: 12/11/2018 8:01 PM CLINICAL HISTORY: 43 years old, female; Abdominal pain; Localized; Upper; Additional info: Upper abd pain/? Hernia TECHNIQUE: Imaging protocol: Computed tomography of the abdomen and pelvis with intravenous contrast. Radiation optimization: All CT scans at this facility use at least one of these dose optimization techniques: automated exposure control; mA and/or kV adjustment per patient size (includes targeted exams where dose is matched to clinical indication); or iterative reconstruction. Contrast material: ISOVUE 370; Contrast volume: 100 ml; Contrast route: IV; COMPARISON: CT ABD PELVIS W/O FOL BY WIT 10/24/2018 4:26 PM FINDINGS: Mediastinum: Minimal hiatal hernia. Liver: Inverted cecum which is adjacent to the hepatic tip. The appendix is not seen with a surgical clip in the area suggesting prior appendectomy. Gallbladder and bile ducts: Status post cholecystectomy. Pancreas: Normal. No ductal dilation. Spleen: Normal. No splenomegaly. Adrenals: Calcification of the right adrenal which may reflect prior hemorrhage. Kidneys and ureters: Normal. No hydronephrosis. Stomach and bowel: Unremarkable. No obstruction. No mucosal thickening. Appendix: See Liver Finding. Intraperitoneal space: Unremarkable. No free air. No significant fluid collection. Vasculature: Unremarkable. No abdominal aortic aneurysm. Lymph nodes: Unremarkable. No enlarged lymph nodes. Bladder: Unremarkable as visualized. Reproductive: Status post hysterectomy. The slight induration around the vaginal cuff which is similar to the prior study. Bones/joints: Unremarkable. No acute fracture. Soft tissues: Unremarkable. IMPRESSION: 1. There has been little change from 10/24/2018. No acute interval process is identified. 2. There has been prior cholecystectomy and hysterectomy and probably appendectomy. 3. Minimal hiatal hernia. Electronically signed by: Dallas Reed On 12/11/2018 21:13:26 PM
[2018-12-11] MEDS ORDERED: MORPHINE 4 MG/ML 1ML VIAL/SYRINGE (J2270) IV ONE (21:30)
[2018-12-11] MEDS ORDERED: GI COCKTAIL 50ML BTL(HYOSCYAMINE/MAALOX/LIDOCAINE VISCOUS)(1:3:1) PO ONE (21:30)
[2018-12-11 21:51] VITALS: BP 125/71
[2018-12-11] MEDS ORDERED: OMEP40CA2 PO (22:41)
[2018-12-11] MEDS ORDERED: KEFL500C17 PO (22:52)
== END 2018-12-11 22:58 | disposition home or self-care (01) ==
LOC: M ED 18:12
DX: K21.9 Gastro-esophageal reflux disease without esophagitis (principal); K44.9 Diaphragmatic hernia without obstruction or gangrene; R22.41 Localized swelling, mass and lump, right lower limb; G43.909 Migraine, unspecified, not intractable, without status migrainosus; R56.9 Unspecified convulsions; Z87.442 Personal history of urinary calculi; Z88.8 Allergy status to other drugs, medicaments and biological substances; Z88.6 Allergy status to analgesic agent; Z88.1 Allergy status to other antibiotic agents; Z91.048 Other nonmedicinal substance allergy status; Z79.899 Other long term (current) drug therapy; Z79.890 Hormone replacement therapy
CPT/HCPCS: 74177; 80048; 80076; 81001; 83605; 83690; 84702; 85025; 85652; 86140; 87040; 96361; 96374; 96375; 99284; J1885; J2270; J2405; Q9967

== ENCOUNTER → 2018-12-16 | Outpatient (REF) | payer BC ==
[~2018-12-16] MED LIST changes: +BENZ-18; +BUPR300T34 PO; +KEFL500C17 PO
[2018-12-20 00:07] LABS: EBV VIRAL CAPSID AG IgM <36.0 U/mL (0.0-35.9)
== END ==
LOC: M LAB REF 18:20
PROVIDERS: ATTEND Nurse Practitioner Family
DX: R53.83 Other fatigue (principal); R10.9 Unspecified abdominal pain

== ENCOUNTER → 2018-12-24 | Outpatient (REF) | payer BC | LOC: M LAB REF 10:00 | PROVIDERS: ATTEND Nurse Practitioner Family | DX: R19.7 Diarrhea, unspecified (principal) ==

== ENCOUNTER → 2019-01-19 | Outpatient (REF) | payer BC ==
[~2019-01-19] MED LIST changes: -OMEP40CA2 PO; +OMEP40CA97 PO
== END ==
LOC: M LAB REF 11:30
PROVIDERS: ATTEND Internal Medicine Infectious Disease
DX: R19.7 Diarrhea, unspecified (principal)

== ENCOUNTER → 2019-01-19 | Outpatient (REF) | payer BC ==
[2019-01-19 14:06] LABS: BASO # 0.1 10^3/uL (0.0-0.2); BASO % 0.8 % (0.0-1.0); EOS # 0.3 10^3/uL (0.0-0.5); EOS % 3.6 % (0.0-3.0); HEMOGLOBIN 13.7 g/dl (12.0-15.5); LYMPH # 1.6 10^3/uL (1.5-5.0); MEAN CORPUSCULAR HEMOGLOBIN 29.1 pg (27.0-33.0); MEAN CORPUSCULAR HGB CONC 32.6 g/dl (32.0-36.5); MEAN CORPUSCULAR VOLUME 89.2 fl (80.0-96.0); MONO # 0.6 10^3/uL (0.0-0.8); MONO % 8.2 % (0.0-5.0); NEUTROPHILS # 4.7 10^3/uL (1.5-8.5); PLATELET COUNT, AUTOMATED 275 10^3/uL (150-450); RED BLOOD COUNT 4.71 10^6/uL (4.00-5.40); WHITE BLOOD COUNT 7.2 10^3/uL (4.0-10.0)
== END ==
LOC: M SFHCPLAZ 11:05
PROVIDERS: ATTEND Internal Medicine Infectious Disease
DX: R19.7 Diarrhea, unspecified (principal)

== ENCOUNTER → 2019-03-17 | Outpatient (REF) | payer BC ==
[2019-03-17 19:25] LABS: INFLUENZA A AMPLIFICATION NEGATIVE (NEGATIVE); INFLUENZA B AMPLIFICATION NEGATIVE (NEGATIVE)
== END ==
LOC: M LAB REF 17:17
PROVIDERS: ATTEND Nurse Practitioner Family
DX: J02.9 Acute pharyngitis, unspecified (principal)

== ENCOUNTER → 2019-04-11 | Outpatient (REF) | payer BC ==
[~2019-04-11] MED LIST changes: -BUPR300T34 PO; +BUPR300T92 PO
[2019-04-11 14:01] LABS: MONO SCRN NEGATIVE (NEGATIVE)
== END ==
LOC: M LAB REF 12:51
PROVIDERS: ATTEND Registered Nurse
DX: R51 Headache (principal); R53.83 Other fatigue; J20.9 Acute bronchitis, unspecified

== ENCOUNTER → 2019-05-29 | Outpatient (CLI) | payer BC ==
[2019-05-29 16:17] LABS: FREE T4 1.01 NG/DL (0.76-1.46); THYROID STIMULATING HORMONE 1.84 uIU/ML (0.358-3.740)
== END ==
LOC: M LAB 14:58
PROVIDERS: ATTEND Internal Medicine Gastroenterology
DX: K58.2 Mixed irritable bowel syndrome (principal)

== ENCOUNTER 2019-06-05 12:22 | Day surgery (SDC) | payer BC ==
[~2019-06-05] VITALS: Ht 160 cm; Wt 61.7 kg
[~2019-06-05 12:22] MED LIST changes: +NS 1,000 ML IV ONE
[2019-06-05] MEDS ORDERED: propofoL 200 MG/20 ML VIAL As Ordered ONE (12:50)
[2019-06-05] MEDS ORDERED: LIDOCAINE 2% INJ 100 MG/5 ML SDV (FOR ANES.) As Ordered ONE (12:53)
[2019-06-05] MEDS ORDERED: fentaNYL 100 MCG/2 ML INJECTION (J3010) As Ordered ONE (13:22)
--- NOTE | 2019-06-05 14:04 | ROOR ---
Patient Name: Esther Simon Procedure Date: 06/05/2019 1:44 PM Date of : 1975 Age: 44 Room: [facility] Gender: Female Note Status: Finalized Procedure: Upper GI endoscopy Indications: Generalized abdominal pain, Indigestion Providers: Romaine ZURITA MD Referring MD: MARI LEE NP Requesting Provider: Medicines: Monitored Anesthesia Care Complications: No immediate complications. Procedure: Pre-Anesthesia Assessment: - The heart rate, respiratory rate, oxygen saturations, blood pressure, adequacy of pulmonary ventilation, and response to care were monitored throughout the procedure. The Endoscope was introduced through the mouth, and advanced to the second part of duodenum. The upper GI endoscopy was accomplished without difficulty. The patient tolerated the procedure well. Findings: One benign-appearing, intrinsic moderate (circumferential scarring or stenosis; an endoscope may pass) stenosis was found at the gastroesophageal junction. This stenosis measured less than one cm (in length). The stenosis was traversed after dilation. A TTS dilator was passed through the scope. Dilation with a 15-16.5-18 mm balloon dilator was performed to 16.5 mm. The dilation site was examined and showed complete resolution of luminal narrowing. This was biopsied with a cold forceps for evaluation of eosinophilic esophagitis. Very small (insignificant) Hiatal Hernia. The entire examined stomach was normal. The examined duodenum was normal. Biopsies for histology were taken with a cold forceps for evaluation of celiac disease. Impression: - Small caliber esophagus with Benign-appearing esophageal stenosis. Dilated. Biopsied. - Very small (insignificant) Hiatal Hernia. - Normal stomach. - Normal examined duodenum. Biopsied. Recommendation: - Observe patient's clinical course. - Continue present medications. - Use Prilosec (omeprazole) 40 mg PO daily. - Telephone endoscopist for pathology results in 2 weeks. Romaine Zurita MD Romaine ZURITA MD 06/05/2019 2:04:18 PM Electronically signed by Romaine ZURITA MD Number of Addenda: 0 Note Initiated On: 06/05/2019 1:44 PM Estimated Blood Loss: Estimated blood loss: none.
--- NOTE | 2019-06-05 14:22 | ROOR ---
Patient Name: Esther Simon Procedure Date: 06/05/2019 1:45 PM Date of : 1975 Age: 44 Room: [facility] Gender: Female Note Status: Finalized Procedure: Colonoscopy Indications: Suspected irritable bowel syndrome, Change in bowel habits, Constipation, Diarrhea Providers: Romaine ZURITA MD Referring MD: MARI LEE NP Requesting Provider: Medicines: Monitored Anesthesia Care Complications: No immediate complications. Procedure: Pre-Anesthesia Assessment: - The heart rate, respiratory rate, oxygen saturations, blood pressure, adequacy of pulmonary ventilation, and response to care were monitored throughout the procedure. The Colonoscope was introduced through the anus and advanced to 10 cm into the ileum. The colonoscopy was performed without difficulty. The patient tolerated the procedure well. The quality of the bowel preparation was good. Findings: The perianal and digital rectal examinations were normal. The colon (entire examined portion) appeared normal. The terminal ileum appeared normal. Biopsies for histology were taken with a cold forceps for evaluation of microscopic colitis. Small Internal Hemorrhoids. Impression: - The entire examined colon is normal. - The examined portion of the ileum was normal. - Small Internal Hemorrhoids. - Biopsies were taken with a cold forceps for evaluation of microscopic colitis. - (Irritable Bowel Syndrome/IBS suspected.) Recommendation: - Discontinue Bentyl (dicyclomine). - Use Levsin, NuLev (hyoscyamine) 0.125 mg 1-2 tabs SL q 4 hours PRN. - (the script was sent to your pharmacy on file) - Lactose free diet. - Telephone endoscopist for pathology results in 2 weeks. - Return to referring physician as previously scheduled. Romaine Zurita MD Romaine ZURITA MD 06/05/2019 2:22:37 PM Electronically signed by Romaine ZURITA MD Number of Addenda: 0 Note Initiated On: 06/05/2019 1:45 PM Estimated Blood Loss: Estimated blood loss: none.
[2019-06-05 14:50] VITALS: BP 123/64
== END 2019-06-05 15:06 | disposition home or self-care (01) ==
LOC: M OPP 12:22
PROVIDERS: ATTEND Internal Medicine Gastroenterology
DX: R19.4 Change in bowel habit (principal); K59.00 Constipation, unspecified; R19.7 Diarrhea, unspecified; R10.84 Generalized abdominal pain; K22.2 Esophageal obstruction; K30 Functional dyspepsia; K44.9 Diaphragmatic hernia without obstruction or gangrene; K21.9 Gastro-esophageal reflux disease without esophagitis; D64.9 Anemia, unspecified; N94.10 Unspecified dyspareunia; G43.909 Migraine, unspecified, not intractable, without status migrainosus; Z88.8 Allergy status to other drugs, medicaments and biological substances; Z91.018 Allergy to other foods; Z88.1 Allergy status to other antibiotic agents; Z79.899 Other long term (current) drug therapy
CPT/HCPCS: 43239; 43249; 45380; 88305; J3010

== ENCOUNTER → 2019-08-14 | Outpatient (CLI) | payer BC ==
[~2019-08-14] MED LIST changes: +FLUT22IN; -NS 1,000 ML IV ONE
--- NOTE | 2019-08-17 17:10 | SLEEPMSLT ---
DATE OF PROCEDURE: 08/14/2019 ORDERED BY: Dr. Ng Nocturnal polysomnography was performed followed by multiple sleep latency testing for evaluation of sleep physiology in this patient with a history of excessive somnolence, and nonrestorative sleep. For the nocturnal portion of testing, 7 hours and 21 minutes of data were reviewed. There were 420 minutes of sleep identified. Sleep latency was short at 3 minutes. Rapid eye movement (REM) latency was short at 66 minutes. Sleep architecture was fairly good. There were four REM cycles noted. Overall sleep efficiency was 96.3% The electrocardiogram showed sinus rhythm with an average heart rate of 75 beats per minute, rate ranged 60-90. EEG showed essentially normal, waveforms for awake and sleep stages. There were no focal events. There were only three respiratory events identified of 10 seconds in duration or greater for an apnea hypopnea index of 0.4. Snoring was, however, noted over much of the study. Respiratory related arousals occurred only 0.7 times per hour, and there were no oxygen desaturations. There was some scattered limb activity in the EMG leads. Limb movement arousal index was only 4.3. Nocturnal polysomnography was followed by multiple sleep latency testing. Four nap opportunities were offered at two-hour intervals. Sleep was appreciated on four of four nap opportunities and REM sleep was clearly appreciated on nap #2. The patient's mean sleep latency was 4.4 minutes. IMPRESSION: 1. Normal nocturnal polysomnography with snoring. 2. Pathological sleep latency (mean sleep latency 4.4 minutes) with one sleep onset REM period. Note: Results of drug screening are not available at the time of this dictation.
== END ==
LOC: M SLEEP 20:00
PROVIDERS: ATTEND Internal Medicine Pulmonary Disease
DX: R40.0 Somnolence (principal)

== ENCOUNTER 2019-08-21 12:12 | Emergency (ER) | payer OTHER, BC ==
[~2019-08-21] VITALS: Ht 160 cm; Wt 59.1 kg
[~2019-08-21 12:12] MED LIST changes: -FLUT22IN
[2019-08-21 12:13] VITALS: BP 130/64
[2019-08-21] MEDS ORDERED: FLUT22IN (12:21)
[2019-08-21] MEDS ORDERED: KETOROLAC 30 MG/ML 1ML VIAL IM ONE (12:45)
--- NOTE | 2019-08-21 13:08 | REP ---
Clinical: Trauma. Technique: AP, lateral, bilateral oblique views of the right wrist. Findings: The carpal bones, surrounding osseous structures, soft tissues, and joint spaces are normal. There is no evidence for acute fracture or dislocation. No subcutaneous emphysema or radiodense foreign body. Impression: Normal wrist series. No acute fracture or dislocation Electronically Signed by Neto Berg MD 08/21/2019 01:00 P
--- NOTE | 2019-08-21 13:10 | REP ---
Clinical: Trauma. Technique: AP and lateral views of the right forearm. Findings: No acute fracture or dislocation. Skeletal structures, joint spaces, and surrounding soft tissues appear normal. Impression: No acute fracture or dislocation. Electronically Signed by Neto Berg MD 08/21/2019 01:02 P
== END 2019-08-21 13:56 | disposition home or self-care (01) ==
LOC: M ED 12:12
DX: S63.501A Unspecified sprain of right wrist, initial encounter (principal); W22.8XXA Striking against or struck by other objects, initial encounter; Y92.89 Other specified places as the place of occurrence of the external cause; Y99.8 Other external cause status; G43.909 Migraine, unspecified, not intractable, without status migrainosus; Z79.899 Other long term (current) drug therapy; Z91.018 Allergy to other foods; Z88.1 Allergy status to other antibiotic agents; Z88.5 Allergy status to narcotic agent; Z88.8 Allergy status to other drugs, medicaments and biological substances
CPT/HCPCS: 73090; 73110; 99283; J1885

== ENCOUNTER → 2019-09-01 | Outpatient (REF) | payer BC ==
[~2019-09-01] MED LIST changes: +FLUT22IN
== END ==
LOC: M LAB REF 12:49
PROVIDERS: ATTEND Nurse Practitioner Family
DX: R19.7 Diarrhea, unspecified (principal); R10.9 Unspecified abdominal pain

== ENCOUNTER 2019-09-21 14:23 | Emergency (ER) | payer BC ==
[~2019-09-21] VITALS: Ht 160 cm; Wt 62.3 kg
[2019-09-21] MEDS ORDERED: [UNRECOGNIZED DRUG - CODE] (15:12)
[2019-09-21] MEDS ORDERED: MODA200T15 (15:12)
[2019-09-21] MEDS ORDERED: FLUTISP (15:12)
[2019-09-21 15:38] LABS: BASO # 0.1 10^3/uL (0.0-0.2); BASO % 0.8 % (0.0-1.0); EOS # 0.2 10^3/uL (0.0-0.5); EOS % 2.1 % (0.0-3.0); HEMATOCRIT 35.7 % (36.0-47.0); HEMOGLOBIN 11.7 g/dl (12.0-15.5); LYMPH % 25.9 % (24.0-44.0); MEAN CORPUSCULAR HEMOGLOBIN 28.6 pg (27.0-33.0); MEAN CORPUSCULAR HGB CONC 32.8 g/dl (32.0-36.5); MEAN CORPUSCULAR VOLUME 87.3 fl (80.0-96.0); MONO # 0.5 10^3/uL (0.0-0.8); MONO % 7.1 % (0.0-5.0); NEUTROPHILS # 4.9 10^3/uL (1.5-8.5); NEUTROPHILS % 63.7 % (36.0-66.0); PLATELET COUNT, AUTOMATED 312 10^3/uL (150-450); RED BLOOD COUNT 4.09 10^6/uL (4.00-5.40); WHITE BLOOD COUNT 7.6 10^3/uL (4.0-10.0)
[2019-09-21 16:04] LABS: ALBUMIN 3.4 GM/DL (3.2-5.2); BILIRUBIN,DIRECT 0.2 MG/DL (0.0-0.2); BILIRUBIN,TOTAL 0.5 MG/DL (0.2-1.0); TOTAL PROTEIN 6.6 GM/DL (6.4-8.2)
[2019-09-21] MEDS ORDERED: ONDANSETRON 4MG/2ML VIAL IV ONE (16:15)
[2019-09-21] MEDS ORDERED: NS 1,000 ML IV ONE (16:15)
[2019-09-21] MEDS ORDERED: ONDA4TAB6 PO (17:06)
[2019-09-21] MEDS ORDERED: SIME80TA PO (17:06)
--- NOTE | 2019-09-21 17:23 | REP ---
ABDOMINAL SERIES: Supine and erect views of the abdomen demonstrate no evidence of free intraperitoneal air and no evidence of small bowel obstruction. No dilated small bowel loops are seen. Metallic clips are seen in the right upper quadrant. There is partial sacralization of L5 on the right. IMPRESSION: No evidence of free intraperitoneal air or small bowel obstruction. Electronically Signed by Loco Link MD 09/22/2019 01:16 P
[2019-09-21 18:03] VITALS: BP 159/89
== END 2019-09-21 18:05 | disposition home or self-care (01) ==
LOC: M ED 14:23
DX: R10.9 Unspecified abdominal pain (principal); G89.29 Other chronic pain; R14.0 Abdominal distension (gaseous); R11.10 Vomiting, unspecified; Z88.1 Allergy status to other antibiotic agents; Z88.8 Allergy status to other drugs, medicaments and biological substances; Z79.899 Other long term (current) drug therapy
CPT/HCPCS: 74019; 80047; 80076; 81001; 83690; 85025; 96361; 96374; 99284; J2405

== ENCOUNTER 2019-10-01 12:53 | Emergency (ER) | payer BC ==
[~2019-10-01 12:53] MED LIST changes: +FLUTISP; +MODA200T15; +SIME80TA PO; +[UNRECOGNIZED DRUG - CODE]
[2019-10-01 12:54] VITALS: BP 111/61
[2019-10-01] MEDS ORDERED: PERCOCET 5MG/325MG TAB PO ONE (13:45)
--- NOTE | 2019-10-01 13:59 | REP ---
Clinical: Trauma. Technique: AP, lateral, bilateral oblique views of the left ankle. Findings: Generalized soft tissue swelling. Age-related changes. No acute fracture or dislocation. Ankle mortise intact. Impression: Soft-tissue swelling. No acute fracture or dislocation. Electronically Signed by Neto Berg MD 10/01/2019 01:51 P
--- NOTE | 2019-10-01 14:24 | REP ---
Clinical: Fifth metatarsal pain Technique: AP, lateral, bilateral oblique views left foot . Findings: The osseous structures and joint spaces are intact and normal. There is no evidence for acute fracture or dislocation. Surrounding soft tissues are unremarkable. No subcutaneous emphysema or radiodense foreign body. Impression: Normal left foot series . No acute fracture or dislocation. Electronically Signed by Neto Berg MD 10/01/2019 02:16 P
== END 2019-10-01 14:52 | disposition home or self-care (01) ==
LOC: M ED 12:53
DX: S93.402A Sprain of unspecified ligament of left ankle, initial encounter (principal); X50.9XXA Other and unspecified overexertion or strenuous movements or postures, initial encounter; Y92.89 Other specified places as the place of occurrence of the external cause; K21.9 Gastro-esophageal reflux disease without esophagitis; D72.1 Eosinophilia; K58.9 Irritable bowel syndrome, unspecified; Z79.899 Other long term (current) drug therapy; Z88.1 Allergy status to other antibiotic agents; Z88.8 Allergy status to other drugs, medicaments and biological substances; Z91.018 Allergy to other foods

== ENCOUNTER → 2020-02-08 | Outpatient (REF) | payer BC | LOC: M LAB REF 09:30 | PROVIDERS: ATTEND Internal Medicine Gastroenterology | DX: R13.10 Dysphagia, unspecified (principal); R14.0 Abdominal distension (gaseous); R10.13 Epigastric pain; R19.4 Change in bowel habit ==

== ENCOUNTER → 2020-02-12 | Outpatient (CLI) | payer BC ==
[~2020-02-12] MED LIST changes: +E-Z-PAQUE 96% w/w SUSP 176GM BTL As Ordered ONE
--- NOTE | 2020-02-12 18:29 | REP ---
INDICATION: ABD PAIN. TECHNIQUE: This procedure was performed by Eloise Coronado [facility], under the direct supervision of Dr. Link. Images were reviewed with Dr. Link prior to dictation. Liquid barium was administered and the barium column was followed through the small bowel to the level of the terminal ileum. FINDINGS: The thermodynamicist film shows no organomegaly or pathological masses. The intestinal gas pattern is unremarkable. Small bowel transit time is approximately 40 minutes. During fluoroscopy gentle palpation shows all loops are freely movable and pliable. There is no fixed angulated loops. The small bowel mucosal pattern is normal in course and caliber. There is no transition to suggest a partial small bowel obstruction. Spot filming of the terminal ileum shows it to be unremarkable. IMPRESSION: Unremarkable small bowel follow-through with a transit time of 40 minutes. 0.6 minutes of fluoroscopy time was utilized for this procedure. Some fluoroscopic images are performed with last image hold technology. These images require no additional radiation. <Electronically signed by Eloise Coronado > 02/12/20 1532 <Electronically signed by Loco Link > 02/12/20 [id number]
== END ==
LOC: M RAD 08:35
PROVIDERS: ATTEND Internal Medicine Gastroenterology
DX: R10.13 Epigastric pain (principal); R14.0 Abdominal distension (gaseous); R13.10 Dysphagia, unspecified; R19.4 Change in bowel habit

== ENCOUNTER → 2020-02-27 | Outpatient (CLI) | payer BC ==
[~2020-02-27] MED LIST changes: -E-Z-PAQUE 96% w/w SUSP 176GM BTL As Ordered ONE
== END ==
LOC: M LABSMTC 10:12
PROVIDERS: ATTEND Family Medicine
DX: Z20.828 Contact with and (suspected) exposure to other viral communicable diseases (principal)

== ENCOUNTER 2020-03-04 15:24 | Emergency (ER) | payer BC ==
[~2020-03-04] VITALS: Ht 160 cm; Wt 67.6 kg
[2020-03-04 19:45] LABS: BASO # 0.1 10^3/uL (0.0-0.2); BASO % 1.1 % (0.0-1.0); EOS # 0.4 10^3/uL (0.0-0.5); EOS % 5.5 % (0.0-3.0); HEMATOCRIT 36.8 % (36.0-47.0); HEMOGLOBIN 11.7 g/dl (12.0-15.5); LYMPH # 2.1 10^3/uL (1.5-5.0); LYMPH % 31.9 % (24.0-44.0); MEAN CORPUSCULAR HEMOGLOBIN 27.3 pg (27.0-33.0); MEAN CORPUSCULAR HGB CONC 31.8 g/dl (32.0-36.5); MONO # 0.6 10^3/uL (0.0-0.8); MONO % 8.7 % (0.0-5.0); NEUTROPHILS # 3.4 10^3/uL (1.5-8.5); NEUTROPHILS % 52.6 % (36.0-66.0); PLATELET COUNT, AUTOMATED 312 10^3/uL (150-450); RED BLOOD COUNT 4.28 10^6/uL (4.00-5.40); WHITE BLOOD COUNT 6.5 10^3/uL (4.0-10.0)
[2020-03-04] MEDS ORDERED: KETOROLAC 30 MG/ML 1ML VIAL IV ONE (19:45)
[2020-03-04] MEDS ORDERED: NS 1,000 ML IV ONE (19:45)
[2020-03-04 20:46] LABS: BLOOD UREA NITROGEN 10 MG/DL (7-18); CALCIUM LEVEL 8.4 MG/DL (8.5-10.1); CARBON DIOXIDE LEVEL 29 MEQ/L (21-32); CHLORIDE LEVEL 110 MEQ/L (98-107); CK-MB VALUE MASS < 1.0 NG/ML (<3.6); CPK CREATINE PHOSPHOKINASE 63 U/L (26-192); CREATININE FOR GFR 0.59 MG/DL (0.55-1.30); GLOMERULAR FILTRATION RATE > 60.0 (>58); GLUCOSE, FASTING 95 MG/DL (70-100); MB/CK RELATIVE INDEX 1.59 (< OR =4); POTASSIUM SERUM 3.9 MEQ/L (3.5-5.1); SODIUM LEVEL 140 MEQ/L (136-145); TROPONIN I < 0.02 NG/ML (< 0.10)
[2020-03-04] MEDS ORDERED: ISOVUE-370 76% 100ML VIAL As Ordered ONE (21:15)
--- NOTE | 2020-03-04 21:55 | REPVR ---
PROCEDURE INFORMATION: Exam: CT Angiography Chest With Contrast Exam date and time: 03/04/2020 9:41 PM Age: 45 years old Clinical indication: Chest pain; Additional info: Pleuritic chest pain, SOB, cough, neg covid TECHNIQUE: Imaging protocol: Computed tomographic angiography of the chest with intravenous contrast. 3D rendering (Not supervised by radiologist): MIP and/or 3D reconstructed images were created by the technologist. Radiation optimization: All CT scans at this facility use at least one of these dose optimization techniques: automated exposure control; mA and/or kV adjustment per patient size (includes targeted exams where dose is matched to clinical indication); or iterative reconstruction. Contrast material: ISOVUE 370; Contrast volume: 75 ml; Contrast route: INTRAVENOUS (IV); COMPARISON: CT ANGIO CHEST 02/13/2018 8:22 PM FINDINGS: Pulmonary arteries: No focal pulmonary artery filling defect to suggest acute pulmonary embolus. Aorta: No thoracic aortic aneurysm or dissection. Lungs: Pulmonary vascular/interstitial pattern does not suggest active pulmonary edema. No suspicious lung mass or air space process. No central endobronchial lesion. Pleural space: No pleural effusion or pneumothorax. Heart: No overt cardiac enlargement or abnormal volume of pericardial fluid. Mediastinal space: Hiatal hernia measuring 3.5 cm is present. Lymph nodes: No enlarged lymph nodes. Gallbladder and bile ducts: Gallbladder is surgically absent. Bones/joints: Bony structures show no acute fracture or destructive process. Soft tissues: No asymmetric abnormality of the extrathoracic soft tissues. IMPRESSION: 1. No evidence of acute pulmonary embolus. 2. No other acute or concerning focal intrathoracic abnormality. 3. Small hiatal hernia measuring 3.5 cm. This can be a source of chest pain in the setting of GE reflux Electronically signed by: Jadiel Jimenes On 03/04/2020 21:55:39 PM
[2020-03-04 22:12] VITALS: BP 128/58
[2020-03-04] MEDS ORDERED: GI COCKTAIL 50ML BTL(HYOSCYAMINE/MAALOX/LIDOCAINE VISCOUS)(1:3:1) PO ONE (22:45)
--- NOTE | 2020-03-05 00:52 | ECGEPIP ---
[facility] - ED Test Date: 2020-03-04 Pat Name: MERY PLATA Department: Room: - Gender: Female Pill Coater: rajiv : 1975 Requested By: STACIA Medina PA-C Order Number: [id number] Reading MD: Aleksandr Ricketts Measurements Intervals [place] Rate: 63 P: 9 MI: 138 QRS: 19 QRSD: 82 T: 33 QT: 389 QTc: 398 Interpretive Statements SINUS RHYTHM POOR R WAVE PROGRESSION NONSPECIFIC T WAVE ABNORMALITY(S) Electronically Signed on 03-05-2020 0:52:27 EST by Aleksandr Ricketts
== END 2020-03-04 23:34 | disposition home or self-care (01) ==
LOC: M ED 15:24
DX: R53.83 Other fatigue (principal); M79.10 Myalgia, unspecified site; R07.89 Other chest pain; R05 Cough; S20.319A Abrasion of unspecified front wall of thorax, initial encounter; S80.811A Abrasion, right lower leg, initial encounter; W18.42XA Slipping, tripping and stumbling without falling due to stepping into hole or opening, initial encounter; Y92.89 Other specified places as the place of occurrence of the external cause; Z88.8 Allergy status to other drugs, medicaments and biological substances; Z88.1 Allergy status to other antibiotic agents; Z91.018 Allergy to other foods; Z79.51 Long term (current) use of inhaled steroids
CPT/HCPCS: 71275; 80048; 82550; 82553; 84484; 85025; 87631; 93005; 96361; 96374; 99284; J1885; Q9967

== ENCOUNTER → 2020-03-06 | Outpatient (REF) | payer BC ==
[2020-03-08 15:07] LABS: ANTINUCLEAR ANTIBODIES DIRECT Negative (Negative)
== END ==
LOC: M LAB REF 17:27
PROVIDERS: ATTEND Physician Assistant Medical
DX: R53.83 Other fatigue (principal)

== ENCOUNTER → 2020-05-02 | Outpatient (CLI) | payer SELFPAY ==
[~2020-05-02] MED LIST changes: +GABA-282 PO; -GABA-843 PO; +SIME80CH5 PO; -SIME80TA PO
== END ==
LOC: M LABSMTC 12:12
PROVIDERS: ATTEND Pediatrics
DX: Z20.822 Contact with and (suspected) exposure to COVID-19 (principal)

== ENCOUNTER → 2020-05-26 | Outpatient (REF) | payer BC | LOC: M LAB REF 17:30 | PROVIDERS: ATTEND Nurse Practitioner Family | DX: R68.81 Early satiety (principal) ==

== ENCOUNTER → 2020-06-24 | Outpatient (CLI) | payer BC ==
--- NOTE | 2020-06-24 11:07 | REP ---
INDICATION: R68.81 EARLY SATIETY. COMPARISON: None. TECHNIQUE/RADIOTRACER AND DOSE: 1.08 mCi of Technetium-99m sulfur colloid was ingested in two scrambled eggs and 6 ounces of water and sequential anterior and posterior images are acquired for an 89-minute imaging observation period. Regions of interest are drawn around the stomach to plot gastric emptying. FINDINGS: Expected T1/2 is 90 minutes. Fifty% emptying is observed in this patient during the 89-minute imaging observation period, for a calculated T1/2 in this patient of 91 minutes. IMPRESSION: Normal gastric emptying. <Electronically signed by Gregory Little > 06/24/20 [id number]
== END ==
LOC: M RAD 08:12
PROVIDERS: ATTEND Internal Medicine Gastroenterology
DX: R68.81 Early satiety (principal); R14.0 Abdominal distension (gaseous); R10.13 Epigastric pain; K44.9 Diaphragmatic hernia without obstruction or gangrene; K20.0 Eosinophilic esophagitis; K59.1 Functional diarrhea
CPT/HCPCS: 78264; A9541

== ENCOUNTER 2020-08-23 11:52 | Emergency (ER) | payer BC ==
[~2020-08-23] VITALS: Ht 160 cm; Wt 68.6 kg
[~2020-08-23 11:52] MED LIST changes: +GABA-283 PO; -GABA-845 PO
[2020-08-23] MEDS ORDERED: MODA200T15 PO (12:05)
--- NOTE | 2020-08-23 12:31 | REP ---
INDICATION: TRAUMA COMPARISON: 04/20/2018 TECHNIQUE: Axial noncontrast images from the skull base to the vertex with coronal reformations. This CT examination was performed using the following dose reduction techniques: Automated exposure control, adjustment of mA and/or kv according to the patient's size, and use of iterative reconstruction technique. FINDINGS: The ventricles, sulci, and cisterns are normal in position and appearance. Link-white differentiation is maintained. No acute intracranial hemorrhage, mass/mass effect, pathology or trauma/injury. No evidence for acute infarction. No extra-axial fluid collection. Calvarium is intact. Paranasal sinuses and mastoid air cells are clear. IMPRESSION: Normal noncontrast head CT. No evidence for acute intracranial pathology or trauma/injury. <Electronically signed by Neto Berg > 08/23/20 [id number]
--- NOTE | 2020-08-23 12:32 | REP ---
INDICATION: TRAUMA COMPARISON: 09/22/2017 TECHNIQUE: Axial noncontrast images from the skull base to the thoracic inlet with coronal and sagittal re-formations This CT examination was performed using the following dose reduction techniques: Automated exposure control, adjustment of mA and/or kv according to the patient's size, and use of iterative reconstruction technique. FINDINGS: Normal alignment is maintained. Cervical vertebral bodies including transverse processes and spinous processes are intact and there is no evidence for acute fracture / compression injury or subluxation. Spinal canal is patent. Posterior elements are intact. Paravertebral soft tissues are normal. IMPRESSION: Normal noncontrast cervical spine CT. No evidence for acute pathology or trauma/injury. <Electronically signed by Neto Berg > 08/23/20 [id number]
--- NOTE | 2020-08-23 12:33 | REP ---
INDICATION: TRAUMA. COMPARISON: None. TECHNIQUE: Axial noncontrast images of the thoracic spine with coronal and sagittal reformations. FINDINGS: Thoracic vertebral bodies are intact and without acute fracture/compression injury or subluxation. Alignment and kyphosis maintained. Disc spaces are normal. Spinal canal is patent and normal. Posterior elements and spinous processes are intact. Paravertebral soft tissues are normal. IMPRESSION: Normal thoracic spine CT. No evidence for acute trauma/injury. <Electronically signed by Neto Berg > 08/23/20 [id number]
--- NOTE | 2020-08-23 12:34 | REP ---
INDICATION: TRAUMA. COMPARISON: None. TECHNIQUE: Axial noncontrast images of the lumbosacral spine from mid T12 through mid sacrum with coronal and sagittal reformations. This CT examination was performed using the following dose reduction techniques: Automated exposure control, adjustment of mA and/or kv according to the patient's size, and use of iterative reconstruction technique. FINDINGS: Alignment and lordosis maintained. Vertebral bodies are intact. Posterior elements and spinous processes are intact. There is no evidence for acute fracture/compression injury or subluxation. The spinal canal is patent. The paravertebral soft tissues are normal. IMPRESSION: Normal lumbosacral spine CT. No evidence for acute fracture/compression injury or subluxation. <Electronically signed by Neto Berg > 08/23/20 [id number]
--- NOTE | 2020-08-23 12:42 | REP ---
INDICATION: TRAUMA. COMPARISON: None. TECHNIQUE: Four views of the left elbow are obtained. FINDINGS: Four views of the left elbow demonstrate normal bones, joints, and soft tissues. No fracture or subluxation is seen. No opaque foreign body noted. IMPRESSION: Negative left elbow series. <Electronically signed by Gregory Little > 08/23/20 [id number]
--- NOTE | 2020-08-23 12:43 | REP ---
INDICATION: TRAUMA. COMPARISON: None. TECHNIQUE: AP and lateral views of the left forearm are provided. FINDINGS: AP and lateral views of the left forearm demonstrate normal bones, joints, and soft tissues. No fracture or subluxation is seen. No opaque foreign body noted. IMPRESSION: Negative left forearm series. <Electronically signed by Gregory Little > 08/23/20 [id number]
--- NOTE | 2020-08-23 12:44 | REP ---
INDICATION: TRAUMA. COMPARISON: Comparison radiographs of the left hand are from December 15, 2013.. TECHNIQUE: Four views of the left wrist are provided. FINDINGS: Four views of the left wrist demonstrate overall normal mineralization. Joint spaces are preserved. Alignment is normal. No fracture or subluxation is seen. IMPRESSION: Negative left wrist radiographs. No fracture seen. <Electronically signed by Gregory Little > 08/23/20 [id number]
[2020-08-23] MEDS ORDERED: CYCL5TAB PO (14:49)
[2020-08-23 14:57] VITALS: BP 108/59
== END 2020-08-23 15:00 | disposition home or self-care (01) ==
LOC: M ED 11:52
DX: S50.12XA Contusion of left forearm, initial encounter (principal); S70.12XA Contusion of left thigh, initial encounter; S30.0XXA Contusion of lower back and pelvis, initial encounter; M62.830 Muscle spasm of back; W10.9XXA Fall (on) (from) unspecified stairs and steps, initial encounter; Y92.009 Unspecified place in unspecified non-institutional (private) residence as the place of occurrence of the external cause; Y93.89 Activity, other specified; Y99.8 Other external cause status; K21.9 Gastro-esophageal reflux disease without esophagitis; Z79.51 Long term (current) use of inhaled steroids; Z79.899 Other long term (current) drug therapy; Z86.69 Personal history of other diseases of the nervous system and sense organs; Z98.890 Other specified postprocedural states

== ENCOUNTER 2020-08-30 06:13 | Emergency (ER) | payer BC ==
[~2020-08-30] VITALS: Ht 160 cm; Wt 68.1 kg
[~2020-08-30 06:13] MED LIST changes: +CYCL5TAB PO; +MODA200T15 PO
[2020-08-30] MEDS ORDERED: ACETAMINOPHEN 500 MG TAB PO ONE (08:10)
--- NOTE | 2020-08-30 08:16 | REP ---
INDICATION: fall COMPARISON: None. TECHNIQUE: AP, lateral, bilateral oblique views left foot. FINDINGS: The osseous structures and joint spaces are intact and normal. There is no evidence for acute fracture or dislocation. Surrounding soft tissues are unremarkable. No subcutaneous emphysema or radiodense foreign body. IMPRESSION: . No acute fracture or dislocation. <Electronically signed by Neto Berg > 08/30/20 [id number]
--- NOTE | 2020-08-30 08:17 | REP ---
INDICATION: fall COMPARISON: None. TECHNIQUE: AP and lateral left tibia FINDINGS: The osseous structures and joint spaces are intact and normal. There is no evidence for acute fracture or dislocation. Surrounding soft tissues are unremarkable. No subcutaneous emphysema or radiodense foreign body. IMPRESSION: . No acute fracture or dislocation. <Electronically signed by Neto Berg > 08/30/20 0829
--- NOTE | 2020-08-30 08:43 | REP ---
INDICATION: ttp and edema to L forearm and L posterolateral thigh COMPARISON: None TECHNIQUE: Real time lopez scale and color ultrasound examination including Doppler evaluation. FINDINGS: Ultrasound examination of the left anterior forearm demonstrates an area of subcutaneous edema with small central 12 mm hypoechoic area which may reflect a small residual hematoma. Ultrasound examination along the posterior left lateral thigh demonstrates subcutaneous edema with 2 small hypoechoic/cystic areas measuring roughly 9 mm and 10 mm maximal diameter each which are nonspecific, avascular and may represent small resolving areas of hematoma. IMPRESSION: Areas of subcutaneous edema noted as described above with small central areas of hypoechoic/cystic change possibly reflecting small areas of central hematoma given the patient's history of recent trauma. <Electronically signed by Neto Berg > 08/30/20 [id number]
[2020-08-30 10:20] VITALS: BP 126/73
== END 2020-08-30 11:19 | disposition home or self-care (01) ==
LOC: M ED 06:13
DX: S50.12XA Contusion of left forearm, initial encounter (principal); S70.12XA Contusion of left thigh, initial encounter; S93.602A Unspecified sprain of left foot, initial encounter; S80.12XA Contusion of left lower leg, initial encounter; W10.9XXA Fall (on) (from) unspecified stairs and steps, initial encounter; Y92.009 Unspecified place in unspecified non-institutional (private) residence as the place of occurrence of the external cause; Y93.89 Activity, other specified; Y99.8 Other external cause status; K20.0 Eosinophilic esophagitis; K21.9 Gastro-esophageal reflux disease without esophagitis; K58.9 Irritable bowel syndrome, unspecified; Z79.51 Long term (current) use of inhaled steroids; Z79.899 Other long term (current) drug therapy; Z88.8 Allergy status to other drugs, medicaments and biological substances; Z88.1 Allergy status to other antibiotic agents; Z82.49 Family history of ischemic heart disease and other diseases of the circulatory system; Z98.890 Other specified postprocedural states

== ENCOUNTER → 2020-10-30 | Outpatient (REF) | payer BC ==
[~2020-10-30] MED LIST changes: +IBUP80TA; +OMEP40CA4 PO; -OMEP40CA97 PO; +REGL5TAB2 PO
[2020-10-30 17:23] LABS: ALBUMIN 3.6 GM/DL (3.2-5.2); ALT/SGPT 33 U/L (12-78); BILIRUBIN,TOTAL 0.4 MG/DL (0.2-1.0); BLOOD UREA NITROGEN 10 MG/DL (7-18); CALCIUM LEVEL 8.9 MG/DL (8.5-10.1); CARBON DIOXIDE LEVEL 25 MEQ/L (21-32); CHLORIDE LEVEL 109 MEQ/L (98-107); GLOMERULAR FILTRATION RATE > 60.0 (>58); GLUCOSE, FASTING 83 MG/DL (70-100); POTASSIUM SERUM 4.2 MEQ/L (3.5-5.1); RHEUMATOID FACTOR QUANT < 10.0 IU/ML (<15.0); SODIUM LEVEL 140 MEQ/L (136-145); TOTAL PROTEIN 6.8 GM/DL (6.4-8.2)
[2020-10-30 17:30] LABS: BASO # 0.1 10^3/uL (0.0-0.2); BASO % 1.2 % (0.0-1.0); EOS # 0.4 10^3/uL (0.0-0.5); EOS % 5.3 % (0.0-3.0); HEMATOCRIT 38.1 % (36.0-47.0); HEMOGLOBIN 12.1 g/dl (12.0-15.5); LYMPH # 1.8 10^3/uL (1.5-5.0); LYMPH % 24.3 % (24.0-44.0); MEAN CORPUSCULAR HEMOGLOBIN 28.5 pg (27.0-33.0); MEAN CORPUSCULAR HGB CONC 31.8 g/dl (32.0-36.5); MEAN CORPUSCULAR VOLUME 89.6 fl (80.0-96.0); MONO # 0.6 10^3/uL (0.0-0.8); MONO % 7.7 % (2.0-8.0); NEUTROPHILS # 4.5 10^3/uL (1.5-8.5); NEUTROPHILS % 61.1 % (36.0-66.0); PLATELET COUNT, AUTOMATED 341 10^3/uL (150-450); RED BLOOD COUNT 4.25 10^6/uL (4.00-5.40); WHITE BLOOD COUNT 7.3 10^3/uL (4.0-10.0)
[2020-10-30 18:49] LABS: ERYTHROCYTE SEDIMENTATION RATE 11 mm/hr (0-20)
== END ==
LOC: M SFHCRHEU 11:03
PROVIDERS: ATTEND Internal Medicine Rheumatology
DX: M35.3 Polymyalgia rheumatica (principal)

== ENCOUNTER → 2020-11-21 | Outpatient (CLI) | payer BC ==
--- NOTE | 2020-11-21 15:48 | REP ---
INDICATION: SHORTNESS OF BREATH. COMPARISON: Comparison chest x-ray December 16, 2017. TECHNIQUE: Two views.. FINDINGS: The lungs are well inflated and free of infiltrate. The pleural angles are sharp. The heart size is normal. Pulmonary vasculature is not increased. No significant bony abnormality is seen. There are clips in right upper quadrant of the abdomen IMPRESSION: Negative chest x-ray. <Electronically signed by Gergory Little > 11/21/20 [id number]
== END ==
LOC: M RAD 15:33
PROVIDERS: ATTEND Internal Medicine Pulmonary Disease
DX: R06.09 Other forms of dyspnea (principal)

== ENCOUNTER 2021-03-07 13:14 | Emergency (ER) | payer BC ==
[~2021-03-07] VITALS: Ht 160 cm; Wt 98.0 kg
[2021-03-07] MEDS ORDERED: GABA-1171 PO (13:57)
[2021-03-07] MEDS ORDERED: FAMO40TA3 PO (13:57)
[2021-03-07] MEDS ORDERED: AMIT25TA17 PO (13:57)
[2021-03-07] MEDS ORDERED: MELO15TA28 PO (13:57)
[2021-03-07 17:16] LABS: BASO # 0.1 10^3/uL (0.0-0.2); BASO % 0.7 % (0.0-1.0); EOS # 0.1 10^3/uL (0.0-0.5); EOS % 0.6 % (0.0-3.0); HEMOGLOBIN 13.1 g/dl (12.0-15.5); LYMPH # 1.9 10^3/uL (1.5-5.0); LYMPH % 17.2 % (24.0-44.0); MEAN CORPUSCULAR HEMOGLOBIN 28.4 pg (27.0-33.0); MEAN CORPUSCULAR HGB CONC 32.8 g/dl (32.0-36.5); MEAN CORPUSCULAR VOLUME 86.8 fl (80.0-96.0); MONO # 0.6 10^3/uL (0.0-0.8); MONO % 5.5 % (2.0-8.0); NEUTROPHILS # 8.2 10^3/uL (1.5-8.5); NEUTROPHILS % 75.6 % (36.0-66.0); PLATELET COUNT, AUTOMATED 385 10^3/uL (150-450); RED BLOOD COUNT 4.61 10^6/uL (4.00-5.40); WHITE BLOOD COUNT 10.9 10^3/uL (4.0-10.0)
[2021-03-07 17:42] LABS: BLOOD UREA NITROGEN 10 MG/DL (7-18); CALCIUM LEVEL 9.5 MG/DL (8.5-10.1); CARBON DIOXIDE LEVEL 26 MEQ/L (21-32); CHLORIDE LEVEL 109 MEQ/L (98-107); CREATININE FOR GFR 0.67 MG/DL (0.55-1.30); GLOMERULAR FILTRATION RATE > 60.0 (>58); GLUCOSE, FASTING 104 MG/DL (70-100); POTASSIUM SERUM 4.7 MEQ/L (3.5-5.1); SODIUM LEVEL 140 MEQ/L (136-145)
[2021-03-07 19:13] LABS: GC DNA AMPLIFICATION NEGATIVE (NEGATIVE)
[2021-03-07] MEDS ORDERED: KETOROLAC 30 MG/ML 1ML VIAL IV ONE (20:35)
[2021-03-07 20:42] LABS: ALBUMIN 3.6 GM/DL (3.2-5.2); ALT/SGPT 25 U/L (12-78); BILIRUBIN,DIRECT 0.1 MG/DL (0.0-0.2); BILIRUBIN,TOTAL 0.4 MG/DL (0.2-1.0); LIPASE 76 U/L (73-393); TOTAL PROTEIN 7.3 GM/DL (6.4-8.2)
[2021-03-07] MEDS ORDERED: KETOROLAC 30 MG/ML 1ML VIAL IM ONE (20:55)
[2021-03-07] MEDS ORDERED: KETOROLAC TROMETHAMINE 10 MG TAB PO ONE (21:15)
[2021-03-07] MEDS ORDERED: HYDR-4571 PO (21:23)
[2021-03-07] MEDS ORDERED: FLOM0.4C39 PO (21:23)
[2021-03-07 21:56] VITALS: BP 122/65
[2021-04-29] MEDS ORDERED: OMEP40CA4 PO (07:57)
[2021-04-29] MEDS ORDERED: AMOX875T2 PO (07:57)
[2021-04-29] MEDS ORDERED: FAMO40TA3 PO (07:57)
== END 2021-03-07 21:59 | disposition home or self-care (01) ==
LOC: M ED 13:14
DX: N20.0 Calculus of kidney (principal); K21.9 Gastro-esophageal reflux disease without esophagitis; Z91.018 Allergy to other foods; Z88.1 Allergy status to other antibiotic agents; Z88.8 Allergy status to other drugs, medicaments and biological substances; Z79.899 Other long term (current) drug therapy
CPT/HCPCS: 36415; 74176; 80048; 80076; 81001; 83690; 84484; 85025; 87661; 93005; 96372; 99284; J1885

== ENCOUNTER 2021-03-19 18:26 | Emergency (ER) | payer BC ==
[~2021-03-19] VITALS: Ht 160 cm; Wt 66.8 kg
[~2021-03-19 18:26] MED LIST changes: +AMIT25TA17 PO; +FAMO40TA3 PO; +FLOM0.4C39 PO; +GABA-1171 PO; +HYDR-4571 PO; +MELO15TA28 PO
[2021-03-19] MEDS ORDERED: ONDANSETRON 4MG/2ML VIAL IV ONE (19:40)
[2021-03-19] MEDS ORDERED: NS 500 ML IV ONE (19:40)
--- NOTE | 2021-03-19 19:56 | REP ---
INDICATION: epigastric pain s/p endoscopy. COMPARISON: Chest 11/21/2020. TECHNIQUE: Supine and erect views of the abdomen, frontal view chest. FINDINGS: There is no evidence of free intraperitoneal air. There is no compelling evidence for bowel obstruction. Metallic clips are seen in the right abdomen. The visualized osseous structures appear unremarkable. No acute infiltrate is seen in either lung. The heart and mediastinum are unremarkable. IMPRESSION: No evidence of free air or obstruction. <Electronically signed by Loco Link > 03/19/211952
[2021-03-19 20:12] LABS: BASO # 0.1 10^3/uL (0.0-0.2); BASO % 0.4 % (0.0-1.0); EOS # 0.5 10^3/uL (0.0-0.5); HEMATOCRIT 38.9 % (36.0-47.0); HEMOGLOBIN 12.7 g/dl (12.0-15.5); LYMPH % 7.8 % (24.0-44.0); MEAN CORPUSCULAR HEMOGLOBIN 28.2 pg (27.0-33.0); MEAN CORPUSCULAR HGB CONC 32.6 g/dl (32.0-36.5); MEAN CORPUSCULAR VOLUME 86.4 fl (80.0-96.0); MONO # 0.4 10^3/uL (0.0-0.8); MONO % 3.4 % (2.0-8.0); NEUTROPHILS # 10.5 10^3/uL (1.5-8.5); PLATELET COUNT, AUTOMATED 378 10^3/uL (150-450); WHITE BLOOD COUNT 12.5 10^3/uL (4.0-10.0)
[2021-03-19] MEDS: MORPHINE 4 MG/ML 1ML VIAL/SYRINGE (J2270) IV PRN ×2 (20:14→23:19)
[2021-03-19 20:45] LABS: ALBUMIN 3.4 GM/DL (3.2-5.2); ALT/SGPT 43 U/L (12-78); BILIRUBIN,DIRECT 0.2 MG/DL (0.0-0.2); BILIRUBIN,TOTAL 0.6 MG/DL (0.2-1.0); BLOOD UREA NITROGEN 5 MG/DL (7-18); CALCIUM LEVEL 8.7 MG/DL (8.5-10.1); CARBON DIOXIDE LEVEL 28 MEQ/L (21-32); CHLORIDE LEVEL 107 MEQ/L (98-107); GLOMERULAR FILTRATION RATE > 60.0 (>58); GLUCOSE, FASTING 103 MG/DL (70-100); LIPASE 69 U/L (73-393); POTASSIUM SERUM 4.1 MEQ/L (3.5-5.1); SODIUM LEVEL 139 MEQ/L (136-145); TOTAL PROTEIN 6.7 GM/DL (6.4-8.2)
[2021-03-19] MEDS: GASTROGRAFIN SOLUTION 30ML PO SCH ×2 (20:45→20:51)
[2021-03-19] MEDS ORDERED: ISOVUE-370 76% 100ML VIAL As Ordered ONE (21:35)
--- NOTE | 2021-03-20 01:08 | REPVR ---
PROCEDURE INFORMATION: Exam: CT Abdomen And Pelvis With Contrast Exam date and time: 03/19/2021 10:47 PM Age: 46 years old Clinical indication: Nausea and vomiting; Additional info: Epigastric pain S/P endoscopy TECHNIQUE: Imaging protocol: Computed tomography of the abdomen and pelvis with contrast. Radiation optimization: All CT scans at this facility use at least one of these dose optimization techniques: automated exposure control; mA and/or kV adjustment per patient size (includes targeted exams where dose is matched to clinical indication); or iterative reconstruction. Contrast material: ISO; Contrast volume: 100 ml; Contrast route: INTRAVENOUS (IV); COMPARISON: CT ABD PELVIS W/O CONTRAST 03/07/2021 8:18 PM FINDINGS: LUNG BASES: Mild dependent atelectasis. - VASCULAR: Visualized cardiac size is at the upper end of normal. No abdominoaortic aneurysm, dissection or retroperitoneal hematoma. - PERITONEAL : No free air or free fluid. - GI: The visualized distal esophagus is distended with contrast up to 2.8 cm in diameter which extends above the level of imaging. This could be secondary to dysmotility or reflux. The visualized distal esophageal wall is thickened despite distention with contrast up to nearly 1 cm of thickness. There is a small hiatal hernia containing contrast. There are a few tiny bubbles of gas which appear to be adjacent to the distal esophagus and not within the lumen, consistent with tiny micro perforation. No contrast extravasation is seen into the posterior mediastinum however. - The stomach is slightly distended with contrast and gas. No appearance of a small-bowel obstruction. No focal mesenteric inflammation. Small nonspecific mesenteric lymph nodes. Scattered fecal material and gas within portions of the colon and rectum. No evidence of acute diverticulitis. The appendix is not identified. No secondary inflammation is seen. - HEPATOBILIARY, PANCREAS, SPLEEN: Hepatic length is 16.5 cm. Hepatic attenuation is consistent with steatosis. The gallbladder has been removed. No significant biliary dilation. No pancreatic inflammation. Spleen not enlarged. - ADRENALS, KIDNEYS, BLADDER, RETROPERITONEAL: Right adrenal calcifications again noted. The adrenal glands are otherwise unremarkable. No hydronephrosis. Symmetric renal enhancement. No perinephric stranding or fluid. No perivesical stranding. No bladder wall thickening. - PELVIC: No dominant cystic pelvic mass seen. Gas within the vagina may be iatrogenic. - MUSCULOSKELETAL: There is a 6 mm nodule within the inferior aspect of the visualized right breast fibroglandular tissue (image 27, series 202). Correlation with clinical breast exam and dedicated breast imaging is advised non emergently. Neoplasia cannot be excluded by this study. Small fat containing umbilical hernia. IMPRESSION: Incompletely imaged esophageal wall thickening, and esophageal distention with contrast, extending above the level of this exam. Clinical correlation for severe esophagitis and reflux. Tiny bubbles of periesophageal gas are noted suggesting a microperforation. - Indeterminate right breast nodule. Nonemergent recommendations discussed above. - Other incidental findings discussed above. Electronically signed by: Saman Cartwright On 03/20/2021 01:07:47 AM
[2021-03-20] MEDS ORDERED: PIPERACILLIN/TAZOBACTAM SOD 3.375 GM in D5W MINI-BAG PLUS 50 ML IV ONE (01:45)
[2021-03-20] MEDS ORDERED: MORPHINE 4 MG/ML 1ML VIAL/SYRINGE (J2270) IV ONE (02:00)
[2021-03-20 03:03] LABS: RSV AMPLIFICATION NEGATIVE (NEGATIVE)
[2021-03-20 03:26] VITALS: BP 112/61
--- NOTE | 2021-03-20 06:43 | ECGEPIP ---
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
--- NOTE | 2021-03-21 09:16 | ED PDOC ---
Post-Departure Follow-Up radiology report faxed to zbigniew Hodge Sarah MD Mar 21, 2021 09:16
== END 2021-03-20 03:29 | disposition short-term general hospital (02) ==
LOC: M ED 18:26
DX: K22.3 Perforation of esophagus (principal); K21.9 Gastro-esophageal reflux disease without esophagitis; G43.909 Migraine, unspecified, not intractable, without status migrainosus; Z88.1 Allergy status to other antibiotic agents; Z88.8 Allergy status to other drugs, medicaments and biological substances; Z91.018 Allergy to other foods
CPT/HCPCS: 74021; 74177; 80048; 80076; 83690; 84484; 85025; 87631; 93005; 93041; 94760; 96361; 96365; 96375; 96376; 99285; J2270; J2405; J2543; Q9963; Q9967

== ENCOUNTER → 2021-04-09 | Outpatient (CLI) | payer BC | LOC: M WHC 07:48 | PROVIDERS: ATTEND Physician Assistant Medical | DX: N63.11 Unspecified lump in the right breast, upper outer quadrant (principal) | CPT/HCPCS: 76642; 77066; G0279 ==

== ENCOUNTER → 2021-04-25 | Outpatient (CLI) | payer BC ==
[~2021-04-25] MED LIST changes: +AMOX875T2 PO; +E-Z-GAS II EFFERVESCENT PACKET (SODIUM BICARB./CITRIC ACID/SIMETHICONE) As Ordered ONE; +E-Z-HD 98% w/w 340GM SUSP BTL As Ordered ONE; +E-Z-PAQUE 96% w/w SUSP 176GM BTL As Ordered ONE
== END ==
LOC: M RAD 09:36
PROVIDERS: ATTEND Internal Medicine Gastroenterology
DX: R10.13 Epigastric pain (principal); K44.9 Diaphragmatic hernia without obstruction or gangrene; R13.10 Dysphagia, unspecified; K20.0 Eosinophilic esophagitis; K22.3 Perforation of esophagus

== ENCOUNTER → 2021-04-29 | Outpatient (CLI) | payer BC ==
[~2021-04-29] MED LIST changes: +**SFHN** LIDOCAINE 1% MDV 20ML VIAL ONE; +**SFHN** SODIUM BICARBONATE 8.4% 10MEQ 10ML VIAL ONE; -E-Z-GAS II EFFERVESCENT PACKET (SODIUM BICARB./CITRIC ACID/SIMETHICONE) As Ordered ONE; -E-Z-HD 98% w/w 340GM SUSP BTL As Ordered ONE; -E-Z-PAQUE 96% w/w SUSP 176GM BTL As Ordered ONE
[2021-04-29 09:27] VITALS: BP 120/84
== END ==
LOC: M WHCPRO 07:43
PROVIDERS: ATTEND Physician Assistant Medical
DX: D24.1 Benign neoplasm of right breast (principal); N60.32 Fibrosclerosis of left breast

== ENCOUNTER → 2021-05-15 | Outpatient (CLI) | payer BC ==
[~2021-05-15] MED LIST changes: -**SFHN** LIDOCAINE 1% MDV 20ML VIAL ONE; -**SFHN** SODIUM BICARBONATE 8.4% 10MEQ 10ML VIAL ONE
== END ==
LOC: M RAD 08:10
PROVIDERS: ATTEND Internal Medicine Gastroenterology
DX: R68.81 Early satiety (principal); R10.13 Epigastric pain; R14.0 Abdominal distension (gaseous)

== ENCOUNTER → 2021-07-25 | Outpatient (CLI) | payer BC ==
[~2021-07-25] MED LIST changes: +ISOVUE-370 76% 100ML VIAL As Ordered ONE
== END ==
LOC: M RAD 15:56
PROVIDERS: ATTEND Physician Assistant Medical
DX: R42 Dizziness and giddiness (principal)

== ENCOUNTER → 2021-08-12 | Outpatient (REF) | payer BC ==
[~2021-08-12] MED LIST changes: -ISOVUE-370 76% 100ML VIAL As Ordered ONE
== END ==
LOC: M LAB REF 16:09
PROVIDERS: ATTEND Physician Assistant Medical
DX: E56.9 Vitamin deficiency, unspecified (principal); R14.0 Abdominal distension (gaseous)

== ENCOUNTER → 2021-12-27 | Outpatient (REF) | payer BC | LOC: M LAB REF 10:20 | PROVIDERS: ATTEND Internal Medicine Gastroenterology | DX: R14.0 Abdominal distension (gaseous) (principal); R19.4 Change in bowel habit; K59.1 Functional diarrhea ==

== ENCOUNTER → 2022-06-15 | Outpatient (CLI) | payer OTHER | LOC: M PLAIMG 06:58 | PROVIDERS: ATTEND Anesthesiology Pain Medicine | DX: G90.522 Complex regional pain syndrome I of left lower limb (principal) ==

== ENCOUNTER → 2022-11-25 | Outpatient (CLI) | payer OTHER ==
[~2022-11-25] MED LIST changes: -AMIT25TA17 PO; +AMIT25TA19 PO; +FLUT50SP17; -FLUTISP; -GABA-283 PO; +GABA-284 PO
== END ==
LOC: M RAD 15:58
PROVIDERS: ATTEND Physician Assistant Medical
DX: R07.9 Chest pain, unspecified (principal)

== ENCOUNTER → 2022-11-25 | Outpatient (REF) | payer OTHER ==
[2022-11-25 16:43] LABS: CK-MB VALUE MASS < 1.0 NG/ML (<3.6)
[2022-11-25 16:45] LABS: CPK CREATINE PHOSPHOKINASE 72 U/L (34-145); MB/CK RELATIVE INDEX 1.38 (< OR =4)
[2022-11-25 16:48] LABS: VITAMIN B12 LEVEL 211 PG/ML (211-911)
== END ==
LOC: M LAB REF 15:59
PROVIDERS: ATTEND Physician Assistant Medical
DX: R20.0 Anesthesia of skin (principal); R07.89 Other chest pain

== ENCOUNTER 2022-11-27 19:09 | Emergency (ER) | payer OTHER ==
[~2022-11-27] VITALS: Ht 160 cm; Wt 66.4 kg
[2022-11-27 20:38] LABS: BASO # 0.1 10^3/uL (0.0-0.2); BASO % 0.9 % (0.0-1.0); EOS # 0.2 10^3/uL (0.0-0.5); EOS % 3.6 % (0.0-3.0); HEMATOCRIT 38.4 % (36.0-47.0); HEMOGLOBIN 12.5 g/dl (12.0-15.5); LYMPH % 29.6 % (24.0-44.0); MEAN CORPUSCULAR HEMOGLOBIN 28.5 pg (27.0-33.0); MEAN CORPUSCULAR HGB CONC 32.6 g/dl (32.0-36.5); MEAN CORPUSCULAR VOLUME 87.5 fl (80.0-96.0); MONO # 0.5 10^3/uL (0.0-0.8); MONO % 7.4 % (2.0-8.0); NEUTROPHILS % 58.4 % (36.0-66.0); PLATELET COUNT, AUTOMATED 324 10^3/uL (150-450); RED BLOOD COUNT 4.39 10^6/uL (4.00-5.40); WHITE BLOOD COUNT 6.8 10^3/uL (4.0-10.0)
[2022-11-27 21:08] LABS: CK-MB VALUE MASS < 1.0 NG/ML (<3.6)
[2022-11-27 21:09] LABS: CPK CREATINE PHOSPHOKINASE 81 U/L (34-145); MB/CK RELATIVE INDEX 1.23 (< OR =4)
[2022-11-27 21:10] LABS: BLOOD UREA NITROGEN 10 MG/DL (9-23); CALCIUM LEVEL 9.3 MG/DL (8.5-10.1); CARBON DIOXIDE LEVEL 29 MMOL/L (20-31); CHLORIDE LEVEL 107 MMOL/L (98-107); CREATININE FOR GFR 0.68 MG/DL (0.55-1.30); GLOMERULAR FILTRATION RATE > 60.0 (>58); GLUCOSE, FASTING 96 MG/DL (60-100); POTASSIUM SERUM 4.3 MMOL/L (3.5-5.1); SODIUM LEVEL 143 MMOL/L (136-145)
[2022-11-27 21:13] LABS: RSV AMPLIFICATION NEGATIVE (NEGATIVE)
[2022-11-28] MEDS ORDERED: KETOROLAC 30 MG/ML 1ML VIAL IV ONE (01:25)
[2022-11-28] MEDS ORDERED: ISOVUE-370 76% 100ML VIAL As Ordered ONE (01:27)
[2022-11-28 03:54] VITALS: BP 128/71; TEMP 98.5; O2SAT 98
== END 2022-11-28 03:50 | disposition home or self-care (01) ==
LOC: M ED 19:09
DX: R07.89 Other chest pain (principal); K44.9 Diaphragmatic hernia without obstruction or gangrene; Z88.8 Allergy status to other drugs, medicaments and biological substances; Z91.018 Allergy to other foods; Z79.899 Other long term (current) drug therapy
CPT/HCPCS: 71045; 71275; 80048; 82550; 82553; 83880; 85025; 85379; 87631; 96374; 99284; J1885; Q9967

== ENCOUNTER → 2022-12-17 | Outpatient (CLI) | payer OTHER | LOC: M PLAIMG 08:54 | PROVIDERS: ATTEND Orthopaedic Surgery Orthopaedic Surgery of the Spine | DX: M54.59 Other low back pain (principal) ==

== ENCOUNTER → 2023-01-22 | Outpatient (CLI) | payer OTHER | LOC: M PLAIMG 07:38 | PROVIDERS: ATTEND Nurse Practitioner Family | DX: M54.12 Radiculopathy, cervical region (principal) ==

== ENCOUNTER → 2023-05-18 | Outpatient (CLI) | payer OTHER ==
[~2023-05-18] MED LIST changes: -FLUT50SP17; +FLUTISP
== END ==
LOC: M RAD 17:17
PROVIDERS: ATTEND Anesthesiology Pain Medicine
DX: M54.50 Low back pain, unspecified (principal); M54.9 Dorsalgia, unspecified; T85.192A Other mechanical complication of implanted electronic neurostimulator of spinal cord electrode (lead), initial encounter; Y83.1 Surgical operation with implant of artificial internal device as the cause of abnormal reaction of the patient, or of later complication, without mention of misadventure at the time of the procedure

== ENCOUNTER → 2023-07-29 | Outpatient (CLI) | payer OTHER ==
[~2023-07-29] MED LIST changes: +BUPR-597 PO; -BUPR300T92 PO
== END ==
LOC: M RAD 13:06
PROVIDERS: ATTEND Nurse Practitioner Family
DX: J45.20 Mild intermittent asthma, uncomplicated (principal); R07.89 Other chest pain

== ENCOUNTER → 2023-08-06 | Outpatient (CLI) | payer OTHER | LOC: M RAD 09:58 | PROVIDERS: ATTEND Anesthesiology Pain Medicine | DX: M54.50 Low back pain, unspecified (principal); T85.192A Other mechanical complication of implanted electronic neurostimulator of spinal cord electrode (lead), initial encounter; Y82.9 Unspecified medical devices associated with adverse incidents; Y84.9 Medical procedure, unspecified as the cause of abnormal reaction of the patient, or of later complication, without mention of misadventure at the time of the procedure ==

== ENCOUNTER → 2023-08-13 | Outpatient (CLI) | payer OTHER | LOC: M RAD 09:13 | PROVIDERS: ATTEND Nurse Practitioner Family | DX: R05.9 Cough, unspecified (principal) ==

== ENCOUNTER → 2023-09-07 | Outpatient (CLI) | payer OTHER ==
[~2023-09-07] MED LIST changes: +METHACHOLINE KIT (6 VIAL.NEB PREMIX) INH ONE; +ONDA-282 PO; -ONDA4TAB6 PO
== END ==
LOC: M CARPUL 13:34
PROVIDERS: ATTEND Internal Medicine Pulmonary Disease
DX: R05.9 Cough, unspecified (principal)
CPT/HCPCS: 94070; 95070; J7674

== ENCOUNTER → 2023-12-22 | Outpatient (REF) | payer OTHER ==
[~2023-12-22] MED LIST changes: -METHACHOLINE KIT (6 VIAL.NEB PREMIX) INH ONE
== END ==
LOC: M LAB REF 12:14
PROVIDERS: ATTEND Podiatrist
DX: L60.0 Ingrowing nail (principal)

== ENCOUNTER → 2024-04-17 | Outpatient (CLI) | payer MEDICARE, MEDICAID ==
[~2024-04-17] MED LIST changes: -CYCL5TAB PO; +CYCL5TAB4 PO; +GABA-1172 PO; -GABA-282 PO
== END ==
LOC: M RAD 15:01
PROVIDERS: ATTEND Physician Assistant Medical
DX: M25.542 Pain in joints of left hand (principal)

== ENCOUNTER → 2024-06-21 | Outpatient (CLI) | payer OTHER, MEDICAID ==
[2024-06-21 12:23] LABS: MAGNESIUM LEVEL 1.9 MG/DL (1.8-2.4)
[2024-06-21 12:25] LABS: TOTAL 25(OH) VITAMIN D 31.9 NG/ML (20.0-100.0)
== END ==
LOC: M LAB 11:06
PROVIDERS: ATTEND Internal Medicine Gastroenterology
DX: K20.0 Eosinophilic esophagitis (principal)

== ENCOUNTER → 2024-12-06 | Outpatient (CLI) | payer MEDICARE, MEDICAID ==
[~2024-12-06] MED LIST changes: -BUPR-597 PO; +BUPR-766 PO; +DEPA250T PO; -DEPA250T32 PO; +DIVA-65 PO; -FLOM0.4C39 PO; -IBUP-1022 PO; +IBUP600T42 PO; +TAMS-18 PO
== END ==
LOC: M WHC 12:45
PROVIDERS: ATTEND Physician Assistant Medical
DX: D24.2 Benign neoplasm of left breast (principal); R92.333 Mammographic heterogeneous density, bilateral breasts
CPT/HCPCS: 76642; 77066; G0279

== ENCOUNTER 2025-03-24 10:54 | Emergency (ER) | payer MEDICARE, MEDICAID ==
[~2025-03-24] VITALS: Ht 162.6 cm; Wt 71.5 kg
[2025-03-24 10:57] VITALS: BP 127/73; TEMP 98.9; O2SAT 99
[2025-03-24 11:53] LABS: SOFIA COVID ANTIGEN NEGATIVE (NEGATIVE)
[2025-03-24] MEDS ORDERED: OSEL75CA PO (13:02)
[2025-03-24] MEDS ORDERED: BENZ200C70 PO (13:02)
== END 2025-03-24 13:11 | disposition home or self-care (01) ==
LOC: M ED 10:54
DX: J09.X2 Influenza due to identified novel influenza A virus with other respiratory manifestations (principal); Z88.1 Allergy status to other antibiotic agents; Z88.8 Allergy status to other drugs, medicaments and biological substances; Z91.018 Allergy to other foods; Z79.899 Other long term (current) drug therapy